=== PATIENT | female | born 1990 | race Caucasian/White ===

== ENCOUNTER → 2016-03-27 | Outpatient (CLI) | payer OTHER ==
[~2016-03-27] MED LIST: ACET-1256 PO; CHOL200010 PO; CYAN500T13 PO; FAMO20TA9 PO; LEVO200T6 PO; NAPR1TAB9 PO; ONDA4TAB10 SL; PEDI1CHW82 PO; ZFRODT4HP SL
--- NOTE | 2016-03-27 16:46 | DIAGNOSTIC IMAGING REPORT ---
CHEST 2 VIEWS ROUTINE HISTORY: Z01.811 PREOP PULMONARY/RESPIRATORY EXAM COMPARISON: Chest 03/27/2015. FINDINGS: Stable punctate calcified granuloma within the left lung apex. The lungs are otherwise clear. The heart is normal in size. No pleural effusions. No pneumothorax. IMPRESSION: No acute process. Electronically signed by: Chau Easton M.D. 03/27/2016 4:44 PM Dictated Date/Time: 03/27/2016 4:43 PM
== END | disposition home or self-care (01) ==
LOC: C.RAD 15:54
PROVIDERS: ATTEND Nurse Practitioner Family
DX: Z01.811 Encounter for preprocedural respiratory examination (principal)

== ENCOUNTER → 2016-03-27 | Outpatient (CLI) | payer OTHER ==
[~2016-03-27] VITALS: Ht 162.6 cm; Wt 160.8 kg
[2016-03-27 15:13] VITALS: BP 132/83; PULSE 111; Ht 162.6 cm; Wt 160.8 kg
== END | disposition home or self-care (01) ==
LOC: C.NEUR 14:50
PROVIDERS: ATTEND Internal Medicine Pulmonary Disease
DX: R53.83 Other fatigue (principal)

== ENCOUNTER → 2016-06-11 | Outpatient (CLI) | payer OTHER ==
[2016-06-11 13:43] LABS: PARTIAL THROMBOPLASTIN RATIO 1.1
[2016-06-15 15:36] LABS: RISTOCETIN COFACTOR** 4459X 118 % (42-200)
[2016-06-20 14:19] LABS: FACTOR VIII ACTIV**SEND TO GMC 217 % (55 - 145)
== END | disposition home or self-care (01) ==
LOC: C.LAB 12:49
PROVIDERS: ATTEND Surgery
DX: Z83.2 Family history of diseases of the blood and blood-forming organs and certain disorders involving the immune mechanism (principal)

== ENCOUNTER → 2016-08-19 | Outpatient (CLI) | payer OTHER ==
[2016-08-19 13:42] LABS: THYROID STIMULATING HORMONE 0.298 uIu/ml (0.300-4.500)
== END | disposition home or self-care (01) ==
LOC: C.LAB 11:25
PROVIDERS: ATTEND Internal Medicine
DX: E03.9 Hypothyroidism, unspecified (principal)

== ENCOUNTER → 2016-11-06 | Outpatient (CLI) | payer OTHER ==
[2016-11-06 09:51] LABS: ALT/SGPT 27 U/L (12-78); AST/SGOT 10 U/L (15-37); BLOOD UREA NITROGEN 18 mg/dl (7-18); BUN/CREATININE RATIO 25.4 (10-20); CARBON DIOXIDE 27 mmol/L (21-32); CHLORIDE 107 mmol/L (98-107); GLUCOSE 87 mg/dl (70-99); HDL CHOLESTEROL 42 mg/dl; POTASSIUM 3.8 mmol/L (3.5-5.1); SODIUM 139 mmol/L (136-145)
[2016-11-06 09:56] LABS: ALB/GLOB RATIO 0.9 (0.9-2); ALKALINE PHOSPHATASE 87 U/L (45-117); CHOLESTEROL 155 mg/dl (0-200); CHOLESTEROL/HDL RATIO 3.7; LDL CHOLESTEROL CALCULATED 81 mg/dl; TRIGLYCERIDES 162 mg/dl (0-150); VERY LOW DENSITY LIPOPROT CALC 32 mg/dl
== END | disposition home or self-care (01) ==
LOC: C.LAB 06:50
PROVIDERS: ATTEND Family Medicine
DX: Z00.00 Encounter for general adult medical examination without abnormal findings (principal); Z98.84 Bariatric surgery status

== ENCOUNTER 2016-12-10 19:45 | Emergency (ER) | payer OTHER ==
[~2016-12-10] VITALS: Ht 162.6 cm; Wt 134.2 kg
[~2016-12-10 19:45] MED LIST changes: -ACET-1256 PO; -CHOL200010 PO; -CYAN500T13 PO; -FAMO20TA9 PO; -LEVO200T6 PO; -ONDA4TAB10 SL; -PEDI1CHW82 PO; -ZFRODT4HP SL
[2016-12-10 19:50] VITALS: TEMP 37; Ht 162.6 cm; Wt 134.2 kg
[2016-12-10] MEDS ORDERED: SODIUM CHLORIDE 0.9% 1000ML 1,000 ML IV STA (20:09)
[2016-12-10] MEDS ORDERED: MoRPHine SULFATE 4 MG/ML 1 ML CARP\\VIAL IV STA (20:09)
[2016-12-10] MEDS ORDERED: ONDANSETRON INJ 2 MG/ML 2 ML VIAL IV STA (20:09)
[2016-12-10 20:36] LABS: BASO % 0.2 %; BASO ABS # 0.02 K/uL (0-0.2); COMPLETE YES; EOS % 0.7 %; HEMATOCRIT 42.7 % (37-47); IG% 0.4 %; LYMPH % 23.7 %; LYMPH ABS # 2.56 K/uL (1.2-3.4); MEAN CELL VOLUME 90.5 fL (80-100); MEAN CORPUSCULAR HEMOGLOBIN 29.7 pg (25-34); MEAN CORPUSCULAR HGB CONC 32.8 g/dl (32-36); MEAN PLATELET VOLUME 9.8 fL (7.4-10.4); MONO % 6.5 %; NEUT % 68.5 %; PLATELET COUNT 365 K/uL (130-400); RED BLOOD COUNT 4.72 M/uL (4.2-5.4); WHITE BLOOD COUNT 10.78 K/uL (4.8-10.8)
[2016-12-10] MEDS ORDERED: PEDI1CHW82 PO (20:44)
[2016-12-10] MEDS ORDERED: CHOL200010 PO (20:44)
[2016-12-10] MEDS ORDERED: ZFRODT4HP SL (20:44)
[2016-12-10] MEDS ORDERED: LEVO200T6 PO (20:44)
[2016-12-10] MEDS ORDERED: ACET-1256 PO (20:44)
[2016-12-10] MEDS ORDERED: CYAN500T13 PO (20:44)
[2016-12-10 20:55] LABS: BUN/CREATININE RATIO 24.5 (10-20); CALCIUM 9.4 mg/dl (8.5-10.1); CREATININE 0.86 mg/dl (0.60-1.20); POTASSIUM 3.9 mmol/L (3.5-5.1)
[2016-12-10 21:00] LABS: PREG INTERNAL NEGATIVE QC NEG CLEAR BACKGROUND; PREG INTERNAL POSITIVE QC POS CONTROL LINE
[2016-12-10 21:41] LABS: URINE APPEARANCE CLEAR (CLEAR); URINE BILIRUBIN NEG (NEG); URINE COLOR DK YELLOW; URINE EPITHELIAL CELL AUTO >30 /lpf (0-5); URINE NITRITE NEG (NEG); URINE PH 6.5 (4.5-7.5); URINE SPECIFIC GRAVITY 1.036 (1.000-1.030); UROBILINOGEN NEG (NEG)
[2016-12-10 21:46] LABS: MANUAL MICROSCOPIC REQUIRED? NO; REVIEW REQ? YES
--- NOTE | 2016-12-10 21:59 | DIAGNOSTIC IMAGING REPORT ---
ABD/PELVIS WITHOUT FOR STONE CT DOSE: 1055.84 mGycm HISTORY: Flank pain left pain eval for stone TECHNIQUE: Multiaxial CT images of the abdomen and pelvis were performed without the use of intravenous and oral contrast according to the standard department stone protocol. A dose lowering technique was utilized adhering to the principles of ALARA. COMPARISON STUDY: 05/11/2008 FINDINGS: Lung bases are clear. Lines of a prior gastroplasty. Fatty infiltration of liver. Mild splenomegaly stable from the prior exam. Kidneys negative for calcification or hydronephrosis. Bowel pattern is nonobstructive. Uterus is anteflexed. No free fluid within the pelvic cul-de-sac. The appendix is normal. Small periumbilical fat-containing hernia. No evidence of bowel containment or obstructive change. IMPRESSION: 1. No evidence for nephrocalcinosis or obstructing urinary tract calculus. 2. Operative changes consistent with a prior gastroplasty. 3. Fatty infiltration of liver. 4. No acute process of the abdomen or pelvis. The above report was generated using voice recognition software. It may contain grammatical, syntax or spelling errors. Electronically signed by: Parminder Ambrosio M.D. 12/10/2016 9:58 PM Dictated Date/Time: 12/10/2016 9:55 PM
[2016-12-10 22:30] VITALS: BP 159/82; PULSE 84; O2SAT 95
--- NOTE | 2016-12-11 00:45 | EMERGENCY ROOM VISIT NOTE ---
History Report prepared by Rehana: Sharda Mayo Under the Supervision of: Dr. Prince Kearney M.D. First contact with patient: 20:02 Chief Complaint: ABDOMINAL PAIN Stated Complaint: POSSIBLE DEHYDRATION AND PAIN History of Present Illness The patient is a 26 year old female who presents to the Emergency Room with complaints of intermittent left sided abdominal pain that began four days ago. She currently rates her discomfort as a 7/10 in severity. The patient states that she has a history of a VSG done in June in [place]. She states that she had the procedure done for weight loss. The patient states that she developed left sided abdominal pain that lasted all day. She describes her pain as a sharp, stabbing pain. The patient states that her pain today has been progressively worsening. She additionally reports left flank tenderness, noting that she is unsure if she is dehydrated. The patient states that she has had kidney stones in the past, but states that her pain today felt worse than a kidney stone. She denies her pain feeling similar to a kidney stone. The patient reports a stabbing pain to her left flank, noting that a tingling, cold, numbness radiated across her abdomen. She reports nausea today which is normal for her, but denies any fever or vomiting. The patient reports a decrease in appetite and fluid intake. She denies any complications due to her surgery. The patient denies any chance of . She denies any change in urination, vaginal bleeding, vaginal discharge, melena or hematochezia. Source of History: patient Onset: four days ago Position: abdomen (left sided) Symptom Intensity: 7/10 Quality: sharp, stabbing Timing: intermittent Associated Symptoms: + nausea, No vomiting, No melena, No hematochezia, No urinary symptoms Note: Associated Symptoms: left flank pain Review of Systems See HPI for pertinent positives & negatives. A total of 10 systems reviewed and were otherwise negative. Past Medical & Surgical Medical Problems: (1) Asthma (2) Kidney stone Surgical Problems: (1) Hx of tonsillectomy Family History Cancer Diabetes mellitus Heart disease Hypertension Kidney disease Kidney stones Social History Smoking Status: Never Smoker Smokeless Tobacco Use: No Alcohol Use: none Marital Status: in relationship Housing Status: lives with significant other Occupation Status: employed Current/Historical Medications Scheduled Cholecalciferol (Vitamin D), 4,000 UNITS PO HS Cyanocobalamin (Vitamin B12 500MCG), 500 MCG PO DAILY Levothyroxine Sodium (Levothyroxine Sodium), 200 MCG PO DAILYBB Pediatric Multiple Vitamin W/ (Flintstones Gummies Compl), 2 TABS PO HS Scheduled PRN Acetaminophen (Tylenol), 1,000 MG PO Q8 PRN for Pain Ondansetron (Ondansetron Odt), 1 TAB SL Q8 PRN for Nausea Allergies Coded Allergies: No Known Allergies (Unverified , 12/10/16) Physical Exam Vital Signs Date Time Temp Pulse Resp B/P (MAP) Pulse Ox O2 Delivery O2 Flow Rate FiO2 12/10/16 22:30 84 17 159/82 95 12/10/16 21:25 93 18 138/74 98 Room Air 12/10/16 19:50 37.0 98 18 98 Room Air Physical Exam Constitutional: Vital signs reviewed. Eyes: Pupils are equal round reactive to light. Conjunctiva are noninjected. ENT: Pharynx is clear without erythema or exudate. Mucous membranes are moist. Neck supple without meningeal signs. Respiratory: Clear to auscultation bilaterally. Breath sounds are equal bilaterally. Cardiovascular: Regular rate and rhythm. No rubs or gallops. GI: Soft, mild left upper quadrant tenderness, no guarding, nondistended. Bowel sounds are present. Musculoskeletal: No peripheral edema. No lower extremity tenderness. Integumentary: No cyanosis. Neurological: The patient is awake and alert. No focal deficits. Psychiatric: Normal affect. Medical Decision & Procedures ER Provider Diagnostic Interpretation: CT results as stated below per my review and radiologist interpretation. ABD/PELVIS WITHOUT FOR STONE CT DOSE: 1055.84 mGycm HISTORY: Flank pain left pain eval for stone TECHNIQUE: Multiaxial CT images of the abdomen and pelvis were performed without the use of intravenous and oral contrast according to the standard department stone protocol. A dose lowering technique was utilized adhering to the principles of ALARA. COMPARISON STUDY: 05/11/2008 FINDINGS: Lung bases are clear. Lines of a prior gastroplasty. Fatty infiltration of liver. Mild splenomegaly stable from the prior exam. Kidneys negative for calcification or hydronephrosis. Bowel pattern is nonobstructive. Uterus is anteflexed. No free fluid within the pelvic cul-de-sac. The appendix is normal. Small periumbilical fat-containing hernia. No evidence of bowel containment or obstructive change. IMPRESSION: 1. No evidence for nephrocalcinosis or obstructing urinary tract calculus. 2. Operative changes consistent with a prior gastroplasty. 3. Fatty infiltration of liver. 4. No acute process of the abdomen or pelvis. The above report was generated using voice recognition software. It may contain grammatical, syntax or spelling errors. Electronically signed by: Parminder Ambrosio M.D. 12/10/2016 9:58 PM Dictated Date/Time: 12/10/2016 9:55 PM Laboratory Results 12/10/16 20:23 Red Blood Count 4.72, Mean Corpuscular Volume 90.5, Mean Corpuscular Hemoglobin 29.7, Mean Corpuscular Hemoglobin Concent 32.8, Mean Platelet Volume 9.8, Neutrophils (%) (Auto) 68.5, Lymphocytes (%) (Auto) 23.7, Monocytes (%) (Auto) 6.5, Eosinophils (%) (Auto) 0.7, Basophils (%) (Auto) 0.2, Neutrophils # (Auto) 7.38, Lymphocytes # (Auto) 2.56, Monocytes # (Auto) 0.70, Eosinophils # (Auto) 0.08, Basophils # (Auto) 0.02 12/10/16 20:23 Test 12/10/16 20:23 12/10/16 21:25 White Blood Count 10.78 K/uL (4.8-10.8) Red Blood Count 4.72 M/uL (4.2-5.4) Hemoglobin 14.0 g/dL (12.0-16.0) Hematocrit 42.7 % (37-47) Mean Corpuscular Volume 90.5 fL (80-100) Mean Corpuscular Hemoglobin 29.7 pg (25-34) Mean Corpuscular Hemoglobin Concent 32.8 g/dl (32-36) Platelet Count 365 K/uL (130-400) Mean Platelet Volume 9.8 fL (7.4-10.4) Neutrophils (%) (Auto) 68.5 % Lymphocytes (%) (Auto) 23.7 % Monocytes (%) (Auto) 6.5 % Eosinophils (%) (Auto) 0.7 % Basophils (%) (Auto) 0.2 % Neutrophils # (Auto) 7.38 K/uL (1.4-6.5) Lymphocytes # (Auto) 2.56 K/uL (1.2-3.4) Monocytes # (Auto) 0.70 K/uL (0.11-0.59) Eosinophils # (Auto) 0.08 K/uL (0-0.5) Basophils # (Auto) 0.02 K/uL (0-0.2) RDW Standard Deviation 45.7 fL (36.4-46.3) RDW Coefficient of Variation 13.8 % (11.5-14.5) Immature Granulocyte % (Auto) 0.4 % Immature Granulocyte # (Auto) 0.04 K/uL (0.00-0.02) Anion Gap 7.0 mmol/L (3-11) Est Creatinine Clear Calc Drug Dose 134.2 ml/min Estimated GFR () 107.3 Estimated GFR (Non- 92.6 BUN/Creatinine Ratio 24.5 (10-20) Calcium Level 9.4 mg/dl (8.5-10.1) Total Bilirubin 0.3 mg/dl (0.2-1) Direct Bilirubin 0.1 mg/dl (0-0.2) Aspartate Amino Transf (AST/SGOT) 14 U/L (15-37) Alanine Aminotransferase (ALT/SGPT) 24 U/L (12-78) Alkaline Phosphatase 96 U/L (45-117) Total Protein 8.0 gm/dl (6.4-8.2) Albumin 3.6 gm/dl (3.4-5.0) Lipase 300 U/L (73-393) Human Chorionic Gonadotropin, Qual NEG (NEG) Urine Color DK YELLOW Urine Appearance CLEAR (CLEAR) Urine pH 6.5 (4.5-7.5) Urine Specific [place] 1.036 (1.000-1.030) Urine Protein TRACE (NEG) Urine Glucose (UA) NEG (NEG) Urine Ketones TRACE (NEG) Urine Occult Blood NEG (NEG) Urine Nitrite NEG (NEG) Urine Bilirubin NEG (NEG) Urine Urobilinogen NEG (NEG) Urine Leukocyte Esterase NEG (NEG) Urine WBC (Auto) 1-5 /hpf (0-5) Urine RBC (Auto) 0-4 /hpf (0-4) Urine Hyaline Casts (Auto) 1-5 /lpf (0-5) Urine Epithelial Cells (Auto) >30 /lpf (0-5) Urine Bacteria (Auto) NEG (NEG) Urine Crystals CALCIUM OXALATE (NONE Urine Test NEG (NEG) Laboratory results as reviewed by me. Medications Administered Medications (Trade) Dose Ordered Sig/Hawa Route Start Time Stop Time Status Last Admin Dose Admin Morphine Sulfate (MoRPHine SULFATE INJ) 4 mg ONE STAT IV 12/10/16 20:09 12/10/16 20:11 DC 12/10/16 20:32 4 MG Ondansetron HCl (Zofran Inj) 4 mg NOW STAT IV 12/10/16 20:09 12/10/16 20:11 DC 12/10/16 20:32 4 MG Sodium Chloride 1,000 ml @ 999 mls/hr Q1H1M STAT IV 12/10/16 20:09 12/10/16 21:09 DC 12/10/16 20:32 999 MLS/HR ED Course 2003: The patient was evaluated in room B11B. A complete history and physical exam was performed. 2008: Ordered Sodium Chloride 1000 ml @ 999 mls/hr IV, Zofran Inj 4 mg IV, Morphine Sulfate 4 mg IV. 2222: I reevaluated the patient and she is doing well. I updated her at this time on her test results. I discussed the treatment plan with her and she verbalized complete understanding and agreement. The patient is ready for discharge. Medical Decision This is a 26-year-old female who presents with abdominal pain. Differential diagnosis includes renal colic, hydronephrosis, partial bowel obstruction, ileus , UTI. I did perform a limited focused review of portions of the patient's old chart on the electronic medical record. The patient had an EGD in 2014 that showed gastritis and a small hiatal hernia. I did evaluate the patient as noted above. IV access was established. I did treat the patient with IV morphine and Zofran. She was also given normal saline IV. I did order and review the patient's urinalysis as described above. I did order and review the patient's blood work as noted in the electronic medical record. Her white blood cell count is not elevated. I did order a CT of the abdomen and pelvis. I did review the images myself as well as the radiology report as described above. There is no evidence of acute process. I did reassess the patient. I did discuss the test results with the patient. She was advised follow closely with her doctor. She was discharged in good condition and given return instructions as outlined below. Medication Reconcilliation Current Medication List: was personally reviewed by me Blood Pressure Screening Patient's blood pressure: Elevated blood pressure Blood pressure disposition: Referred to PCP Impression Primary Impression: Left sided abdominal pain Scribe Attestation The scribe's documentation has been prepared under my direct and personally reviewed by me in its entirety. I confirm that the note above accurately reflects all work, treatment, procedures, and medical decision making performed by me. Departure Information Dispostion Home / Self-Care Referrals No Doctor, Assigned (PCP) Forms HOME CARE DOCUMENTATION FORM, IMPORTANT VISIT INFORMATION Patient Instructions My [facility] Additional Instructions You have been examined and treated today on an emergency basis only. This is not a substitute for, or an effort to provide, complete comprehensive medical care. It is impossible to recognize and treat all injuries or illnesses in a single emergency department visit. It is therefore important that you follow up closely with your physician. Call as soon as possible for an appointment. Return for worsening symptoms or if you develop fever, vomiting, or any other concerning symptoms.
[2016-12-11] MEDS ORDERED: FAMO20TA9 PO (18:41)
[2016-12-11] MEDS ORDERED: ONDA4TAB10 SL (18:41)
== END 2016-12-10 22:30 | disposition home or self-care (01) ==
LOC: C.EDB 19:47
DX: R10.9 Unspecified abdominal pain (principal); J45.909 Unspecified asthma, uncomplicated; Z87.442 Personal history of urinary calculi; Z80.9 Family history of malignant neoplasm, unspecified; Z83.3 Family history of diabetes mellitus; Z84.1 Family history of disorders of kidney and ureter

== ENCOUNTER 2016-12-11 14:58 | Emergency (ER) | payer OTHER ==
[~2016-12-11] VITALS: Ht 162.6 cm; Wt 135.5 kg
[~2016-12-11 14:58] MED LIST changes: +ACET-1256 PO; +CHOL200010 PO; +CYAN500T13 PO; +LEVO200T6 PO; -NAPR1TAB9 PO; +PEDI1CHW82 PO; +ZFRODT4HP SL
[2016-12-11 15:08] VITALS: TEMP 36.8; Ht 162.6 cm; Wt 135.5 kg
--- NOTE | 2016-12-11 15:21 | EMERGENCY ROOM VISIT NOTE ---
History Report prepared by Rehana: Marika Houston Under the Supervision of: Dr. Odilon Fu M.D. First contact with patient: 15:18 Chief Complaint: DEHYDRATION Stated Complaint: IV HYDRATION PER PCP History of Present Illness The patient is a 26 year old female who presents to the Emergency Room with complaints of dehydration beginning last night. She states that she called her primary care doctor today and he told her to come back because she needs fluids. The patient also states that she has been fatigued and disoriented, and has had a headache, but denies a history of migraines. She states that she has only been able to drink tiny sips of water, and that she has only had about 24 ounces of water in the last week. The patient was seen in the ED last night for abdominal pain, nausea, and vomiting, but states that her nausea and vomiting have gone away. She reports that her pain has decreased since last night, but that she is not completely better. 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 Source of History: patient Onset: last night Position: other (global) Quality: other (dehydration) Associated Symptoms: + headache, + fatigue, + weakness (disoriented), No nausea, No vomiting Review of Systems See HPI for pertinent positives and negatives. A total of ten systems were reviewed and were otherwise negative. Past Medical & Surgical Medical Problems: (1) Asthma (2) Kidney stone Surgical Problems: (1) Hx of tonsillectomy Family History Cancer Diabetes mellitus Heart disease Hypertension Kidney disease Kidney stones Social History Smoking Status: Current Every Day Smoker Alcohol Use: none Marital Status: in relationship Housing Status: lives with significant other Occupation Status: employed Current/Historical Medications Scheduled Cholecalciferol (Vitamin D), 4,000 UNITS PO HS Cyanocobalamin (Vitamin B12 500MCG), 500 MCG PO DAILY Famotidine (Pepcid), 20 MG PO BID Levothyroxine Sodium (Levothyroxine Sodium), 200 MCG PO DAILYBB Ondasetron Odt (Zofran Odt), 4 MG SL Q6H Pediatric Multiple Vitamin W/ (Flintstones Gummies Compl), 2 TABS PO HS Scheduled PRN Acetaminophen (Tylenol), 1,000 MG PO Q8 PRN for Pain Ondansetron (Ondansetron Odt), 1 TAB SL Q8 PRN for Nausea Allergies Coded Allergies: No Known Allergies (Unverified , 12/11/16) Physical Exam Vital Signs Date Time Temp Pulse Resp B/P (MAP) Pulse Ox O2 Delivery O2 Flow Rate FiO2 12/11/16 19:22 74 18 121/74 98 12/11/16 17:52 74 18 116/77 97 Room Air 12/11/16 16:18 71 16 105/73 100 Room Air 12/11/16 15:08 36.8 91 20 142/93 96 Room Air Physical Exam GENERAL: Awake, alert, well-appearing, in no distress HENT: Normocephalic, atraumatic. Oropharynx unremarkable. Dry mucous membranes. EYES: Normal conjunctiva. Sclera non-icteric. NECK: Supple. No nuchal rigidity. FROM. No JVD. RESPIRATORY: Clear to auscultation. CARDIAC: Regular rate, normal rhythm. Extremities warm and well perfused. Pulses equal. ABDOMEN: Obese, soft, non-distended. No tenderness to palpation. No rebound or guarding. No masses. RECTAL: Deferred. MUSCULOSKELETAL: Chest examination reveals no tenderness. The back is symmetrical on inspection without obvious abnormality. There is no CVA tenderness to palpation. No joint edema. LOWER EXTREMITIES: Calves are equal size bilaterally and non-tender. No edema. No discoloration. NEURO: Normal sensorium. No sensory or motor deficits noted. SKIN: No rash or jaundice noted. Medical Decision & Procedures Laboratory Results 12/11/16 16:00 Red Blood Count 4.42, Mean Corpuscular Volume 91.0, Mean Corpuscular Hemoglobin 28.5, Mean Corpuscular Hemoglobin Concent 31.3, Mean Platelet Volume 9.8, Neutrophils (%) (Auto) 65.9, Lymphocytes (%) (Auto) 25.8, Monocytes (%) (Auto) 6.6, Eosinophils (%) (Auto) 1.1, Basophils (%) (Auto) 0.3, Neutrophils # (Auto) 6.32, Lymphocytes # (Auto) 2.47, Monocytes # (Auto) 0.63, Eosinophils # (Auto) 0.11, Basophils # (Auto) 0.03 12/11/16 16:00 Test 12/11/16 16:00 White Blood Count 9.59 K/uL (4.8-10.8) Red Blood Count 4.42 M/uL (4.2-5.4) Hemoglobin 12.6 g/dL (12.0-16.0) Hematocrit 40.2 % (37-47) Mean Corpuscular Volume 91.0 fL (80-100) Mean Corpuscular Hemoglobin 28.5 pg (25-34) Mean Corpuscular Hemoglobin Concent 31.3 g/dl (32-36) Platelet Count 322 K/uL (130-400) Mean Platelet Volume 9.8 fL (7.4-10.4) Neutrophils (%) (Auto) 65.9 % Lymphocytes (%) (Auto) 25.8 % Monocytes (%) (Auto) 6.6 % Eosinophils (%) (Auto) 1.1 % Basophils (%) (Auto) 0.3 % Neutrophils # (Auto) 6.32 K/uL (1.4-6.5) Lymphocytes # (Auto) 2.47 K/uL (1.2-3.4) Monocytes # (Auto) 0.63 K/uL (0.11-0.59) Eosinophils # (Auto) 0.11 K/uL (0-0.5) Basophils # (Auto) 0.03 K/uL (0-0.2) RDW Standard Deviation 45.4 fL (36.4-46.3) RDW Coefficient of Variation 13.7 % (11.5-14.5) Immature Granulocyte % (Auto) 0.3 % Immature Granulocyte # (Auto) 0.03 K/uL (0.00-0.02) Anion Gap 8.0 mmol/L (3-11) Est Creatinine Clear Calc Drug Dose 178.6 ml/min Estimated GFR () 141.0 Estimated GFR (Non- 121.7 BUN/Creatinine Ratio 25.4 (10-20) Calcium Level 9.0 mg/dl (8.5-10.1) Phosphorus Level 2.8 mg/dl (2.5-4.9) Magnesium Level 2.0 mg/dl (1.8-2.4) Total Bilirubin 0.3 mg/dl (0.2-1) Direct Bilirubin 0.1 mg/dl (0-0.2) Aspartate Amino Transf (AST/SGOT) 14 U/L (15-37) Alanine Aminotransferase (ALT/SGPT) 21 U/L (12-78) Alkaline Phosphatase 82 U/L (45-117) Total Protein 7.1 gm/dl (6.4-8.2) Albumin 3.4 gm/dl (3.4-5.0) Lipase 269 U/L (73-393) Laboratory results reviewed by me Medications Administered Medications (Trade) Dose Ordered Sig/Hawa Route Start Time Stop Time Status Last Admin Dose Admin Sodium Chloride 1,000 ml @ 999 mls/hr Q1H1M STAT IV 12/11/16 15:32 12/11/16 16:32 DC 12/11/16 16:10 999 MLS/HR Sodium Chloride 1,000 ml @ 999 mls/hr Q1H1M STAT IV 12/11/16 15:32 12/11/16 16:32 DC 12/11/16 16:38 999 MLS/HR Famotidine (Pepcid 20mg/100 ml) 20 mg ONE STAT IV 12/11/16 15:32 12/11/16 15:35 DC 12/11/16 16:10 20 MG Metoclopramide HCl (Reglan Inj) 10 mg NOW STAT IM 12/11/16 15:32 12/11/16 15:35 DC 12/11/16 16:10 10 MG Diphenhydramine HCl (Benadryl Inj) 25 mg NOW STAT IV 12/11/16 15:32 12/11/16 15:35 DC 12/11/16 16:10 25 MG ED Course 1523: The patient was evaluated in room A12A. A complete history and physical exam was performed. 1532: Ordered Benadryl Inj 25 mg IV, Reglan Inj 10 mg IM, Famotidine 20 mg IV, Sodium Chloride 1,000 ml @ 999 mls/hr IV, Sodium Chloride 1,000 ml @ 999 mls/hr IV. 1740: The patient's IV was kicked so she has not received a lot of fluid, but still states that she is feeling better. 1900: I reevaluated the patient. Discussed results and discharge instructions: She verbalized understanding and agreement. The patient is ready for discharge. Medical Decision I reviewed the patient's past medical history, medications, and the nursing notes as described above. Differentials include dehydration, electrolyte imbalance, gastritis, gastroenteritis, and UTI. The patient is a 26-year-old woman with a past medical history of recent gastrectomy seen in ED for dehydration yesterday with unremarkable CT per history of present illness. Arrives in no acute distress, afebrile and stable vital signs. She has dry mucous membranes. Otherwise patient's abdomen is soft nontender. Abdomen unremarkable CT yesterday in the unremarkable labs and patient relatively well-appearing today no indication for further imaging. However given the patient's symptoms of lightheadedness labs repeated to evaluate for interval change but were otherwise stable. Patient feeling much improved after IV fluid hydration. Findings and plan for follow-up d/w patient. Patient agreeable and d/c'd per discharge instructions. Medication Reconcilliation Current Medication List: was personally reviewed by me Blood Pressure Screening Patient's blood pressure: Normal blood pressure Impression Primary Impression: Dehydration Additional Impression: Gastritis Scribe Attestation The scribe's documentation has been prepared under my direction and personally reviewed by me in its entirety. I confirm that the note above accurately reflects all work, treatment, procedures, and medical decision making performed by me. Departure Information Dispostion Home / Self-Care Prescriptions Ondasetron Odt (ZOFRAN ODT) 4 Mg Tab 4 MG SL Q6H for Nausea, #10 TAB Prov: Odilon Fu M.D. 12/11/16 Famotidine (PEPCID) 20 Mg Tab 20 MG PO BID for 14 Days, #28 TABS Prov: Odilon Fu M.D. 12/11/16 Referrals Clive Mittal M.D. (PCP) Forms HOME CARE DOCUMENTATION FORM, IMPORTANT VISIT INFORMATION, WORK / SCHOOL INSTRUCTIONS Patient Instructions ED Dehydration, My [facility] Additional Instructions Please follow up with your primary care physician in the next 1-3 days for re- evaluation. You likely are mildly dehydration due to likely gastritis. Otherwise, your exam and lab results did not show signs of an emergent condition at this time. Pepcid for acid reduction Zofran for nausea as needed. Drink plenty of fluids to ensure hydration. Return to the emergency department for worsening symptoms as described in the accompanying instructions. Problem Qualifiers
[2016-12-11] MEDS ORDERED: FAMOTIDINE 20MG/102 ML D5W IV STA (15:32)
[2016-12-11] MEDS ORDERED: METOCLOPRAMIDE HCL INJ 5 MG/ML 2 ML VIAL IM STA (15:32)
[2016-12-11] MEDS ORDERED: SODIUM CHLORIDE 0.9% 1000ML 1,000 ML IV STA ×2 (15:32)
[2016-12-11] MEDS ORDERED: DiphenhydrAMINE HCL 50 MG/ML VIAL IV STA (15:32)
[2016-12-11 16:17] LABS: BASO % 0.3 %; BASO ABS # 0.03 K/uL (0-0.2); COMPLETE YES; EOS % 1.1 %; HEMATOCRIT 40.2 % (37-47); IG% 0.3 %; LYMPH % 25.8 %; LYMPH ABS # 2.47 K/uL (1.2-3.4); MEAN CORPUSCULAR HEMOGLOBIN 28.5 pg (25-34); MEAN CORPUSCULAR HGB CONC 31.3 g/dl (32-36); MEAN PLATELET VOLUME 9.8 fL (7.4-10.4); MONO % 6.6 %; NEUT % 65.9 %; PLATELET COUNT 322 K/uL (130-400); RED BLOOD COUNT 4.42 M/uL (4.2-5.4); WHITE BLOOD COUNT 9.59 K/uL (4.8-10.8)
[2016-12-11 16:33] LABS: BUN/CREATININE RATIO 25.4 (10-20); CREATININE 0.65 mg/dl (0.60-1.20); POTASSIUM 4.1 mmol/L (3.5-5.1)
[2016-12-11 16:38] LABS: PHOSPHORUS 2.8 mg/dl (2.5-4.9)
[2016-12-11] MEDS ORDERED: ONDA4TAB10 SL (18:41)
[2016-12-11] MEDS ORDERED: FAMO20TA9 PO (18:41)
[2016-12-11 19:22] VITALS: BP 121/74; PULSE 74; O2SAT 98
== END 2016-12-11 19:22 | disposition home or self-care (01) ==
LOC: C.EDB 14:59 → C.EDA 19:22
DX: E86.0 Dehydration (principal); K29.70 Gastritis, unspecified, without bleeding; J45.909 Unspecified asthma, uncomplicated; Z83.3 Family history of diabetes mellitus; Z82.49 Family history of ischemic heart disease and other diseases of the circulatory system; F17.200 Nicotine dependence, unspecified, uncomplicated

== ENCOUNTER → 2017-03-10 | Outpatient (CLI) | payer OTHER ==
[~2017-03-10] MED LIST changes: +ONDA4TAB10 SL
== END | disposition home or self-care (01) ==
LOC: C.LAB 16:53
PROVIDERS: ATTEND Nurse Practitioner
DX: N91.2 Amenorrhea, unspecified (principal)

== ENCOUNTER → 2017-03-24 | Outpatient (CLI) | payer OTHER ==
[2017-03-24 09:34] LABS: BASO % 0.2 %; BASO ABS # 0.02 K/uL (0-0.2); EOS % 0.9 %; EOS ABS # 0.08 K/uL (0-0.5); HEMATOCRIT 38.7 % (37-47); HEMOGLOBIN 13.1 g/dL (12.0-16.0); IG# 0.03 K/uL (0.00-0.02); LYMPH % 27.2 %; LYMPH ABS # 2.34 K/uL (1.2-3.4); MEAN CELL VOLUME 89.2 fL (80-100); MEAN CORPUSCULAR HEMOGLOBIN 30.2 pg (25-34); MEAN CORPUSCULAR HGB CONC 33.9 g/dl (32-36); MEAN PLATELET VOLUME 9.6 fL (7.4-10.4); MONO % 6.7 %; MONO ABS # 0.58 K/uL (0.11-0.59); NEUT % 64.7 %; NEUT ABS # 5.55 K/uL (1.4-6.5); PLATELET COUNT 326 K/uL (130-400); RED CELL DISTRIBUTION WIDTH CV 13.5 % (11.5-14.5); RED CELL DISTRIBUTION WIDTH SD 44.3 fL (36.4-46.3)
== END | disposition home or self-care (01) ==
LOC: C.LAB 07:00
PROVIDERS: ATTEND Obstetrics & Gynecology
DX: O26.90 Pregnancy related conditions, unspecified, unspecified trimester (principal)

== ENCOUNTER → 2017-03-31 | Outpatient (CLI) | payer OTHER | END | disposition home or self-care (01) | LOC: C.LAB 07:00 | PROVIDERS: ATTEND Obstetrics & Gynecology | DX: Z34.90 Encounter for supervision of normal pregnancy, unspecified, unspecified trimester (principal) ==

== ENCOUNTER → 2017-04-27 | Outpatient (CLI) | payer OTHER | END | disposition home or self-care (01) | LOC: C.LAB1850 12:05 | PROVIDERS: ATTEND Obstetrics & Gynecology | DX: Z34.90 Encounter for supervision of normal pregnancy, unspecified, unspecified trimester (principal) ==

== ENCOUNTER → 2017-07-02 | Outpatient (CLI) | payer OTHER ==
[~2017-07-02] MED LIST changes: -ONDA4TAB10 SL
== END | disposition home or self-care (01) ==
LOC: C.LAB 05:35
PROVIDERS: ATTEND Obstetrics & Gynecology
DX: Z34.90 Encounter for supervision of normal pregnancy, unspecified, unspecified trimester (principal)

== ENCOUNTER 2022-11-05 21:49 | Inpatient (IN) ==
[2022-11-05] MEDS ORDERED: KETOROLAC TROMETHAMINE 15 MG/ML VIAL IV ONE (22:28)
[2022-11-05] MEDS ORDERED: PROMETHAZINE HCL 12.5 MG in SODIUM CHLORIDE 0.9% 50 ML IV STA (22:28)
[2022-11-05] MEDS ORDERED: diphenhydrAMINE 50 MG/ML VIAL IV STA (22:28)
[2022-11-05] MEDS ORDERED: SODIUM CHLORIDE 0.9% 1000ML 1,000 ML IV STA (22:28)
--- NOTE | 2022-11-05 22:32 | Emergency Department Note ---
Impression & Plan Acute headache, Cerebral vascular disease, Hypertension ED Provider Note NAME: MAURICIO COLE AGE: 32 SEX: F : 1990 ARRIVES VIA: Walk-In INFORMANT: Patient, ED PROVIDER(S): Dharmesh Jaimes DO CHIEF COMPLAINT: Headache HPI: The patient is a 32-year-old female who presented to the emergency department for an evaluation of headache. The patient describes an occipital headache that goes into the front of her head. She was seen by an eye doctor today and had a funduscopic examination which was reportedly normal. She states that she has had intermittent episodes of this headache. Is become progressively worse. She is scheduled for outpatient studies including an MRI of the brain as well as lumbar puncture. She has had a history of headaches in the past but states this is somewhat different. She denies having any fever or neck stiffness. She denies having any recent trauma. She has been taking her usual outpatient medication without relief of her symptoms. ROS: See above HPI for pertinent positives & negatives. A total of 10 systems reviewed and were otherwise negative. PAST MEDICAL HISTORY: See Below PAST SURGICAL HISTORY: See Below FAMILY HISTORY: See Below SOCIAL HISTORY: See Below HOME MEDICATIONS: See Below ALLERGIES: See Below VITALS: See Below PHYSICAL EXAMINATION: GENERAL: The patient is awake and alert. She is somewhat anxious appearing. EYES: The conjunctivae are clear. The pupils are round and reactive. EARS, NOSE, MOUTH AND THROAT: The nose is without any evidence of any deformity. NECK: The neck is nontender and supple. RESPIRATORY: Normal respiratory effort is noted there is no evidence of wheezing rhonchi or rales CARDIOVASCULAR: Regular rate and rhythm noted there no murmurs rubs or gallops normal S1 normal S2. GASTROINTESTINAL: The abdomen is soft. Abdomen is nontender. MUSCULOSKELETAL/EXTREMITIES: There is no evidence of gross deformity full range of motion is noted in the hips and shoulders. SKIN: There is no obvious evidence of any rash. There are no petechiae, pallor or cyanosis noted. NEUROLOGIC: Patient is awake alert and oriented x3 strength is symmetric patellar reflexes are 2+ bilaterally MEDICAL DECISION MAKING: The patient is a 32-year-old female who presented to the emergency department for an evaluation of left-sided headache. The patient complained mostly of pain behind her left eye. She did have pain that went into her head and into her left side of her neck. The patient's family member presented with her and also reported other issues she noticed at 1 point she did have some slurring speech and was having difficulty ambulating. At this time she has no focal neurologic deficits. She has no history of similar episodes in the past. She was found have an elevation in her blood pressure. I discussed the patient's laboratory and radiographic studies with her. She was treated with a migraine cocktail in the emergency department. On reevaluation she was somewhat improved however CT angiography of the brain did show an area on the left M2 segment that could be consistent with an occlusion. I discussed her condition with the [place] telestroke neurologist. They were able to review the images. At this time it is unclear if this represents artifact or true occlusion. Given the patient's presentation at this time and the fact that her symptoms have been ongoing for many weeks she was not felt to be a candidate for transfer at this time. The neurologist did recommend repeat studies in the way of MRI MRA of the brain. He also recommended aspirin. He also recommended blood pressure control as well as consideration for other causes for her presentation such as reversible vasospasm. He did recommend that we avoid steroids. The patient was agreeable to the plan. [facility] Nursing notes reviewed. Prior medical records reviewed Vital Signs: reviewed and remarkable for elevated blood pressure. Differential diagnosis: Migraine headache, meningitis, sinusitis, CO exposure, ICH, SAH, infection, tumor, headache, sinus thrombosis, arterial dissection, as well as other pathologies. ER treatment provided: See below Diagnostics interpreted by me: ECG: EKG was obtained in the emergency department. My interpretation is sinus rhythm at 73 bpm. There is no ectopy. There is no acute ST segment abnormalities noted. This was compared to a tracing from January 31, 2022. No changes were noted. There was a decrease in the rate however no other significant changes were noted. Cardiac Monitoring: An order was placed for continuous cardiac monitoring. The monitor shows a rate of 90 bpm with sinus rhythm. Laboratory studies: As stated above and show below. Imaging studies: See below. Radiographic imaging was reviewed by myself Consultation(s): I discussed this case with Dr. Jiang who is on for stroke neurology at [facility]. I discussed this case with Dr. Schmitt who is on-call for the [facility] [place] hospitalist group. Past Med/Surg History Medical History Asthma History of gestational hypertension History of hypothyroidism Migraine Morbid obesity Surgical History History of perineal laceration S/P REPAIR Hx of abdominal surgery SLEEVE GASTRECTOMY= NO FURTHER DETAILS Hx of tonsillectomy Family History Other Heart disease Myocardial infarction Social History Smoking Status: Never smoker Hx Alcohol Use: No Hx Substance Use: No Preferred Language: Malay Communication Ability: Effective Beliefs That Will Affect Care: None Current Living Situation: Family Feels Safe at Home: Yes Allergies Allergies Allergy/AdvReac Type Severity Reaction Status Date / Time hydromorphone [From Dilaudid] AdvReac Unknown Headache Verified 07/29/20 16:49 Home Meds Home Medications Medication Instructions Recorded Confirmed [id number] 1 mg 1 tab PO DAILY 07/29/20 07/29/20 tablet rizatriptan 10 mg tablet 10 mg PO UD PRN Migraine Headache 07/29/20 07/29/20 Results & Data (ED) Vital Signs Vital Signs - 24 hr 11/05/22 21:59 11/05/22 22:51 11/05/22 22:52 Temperature 36.9 C Temperature Source Temporal Artery Scan Pulse Rate 72 Pulse Rate [Apical] 73 Pulse Rhythm [Apical] Respiratory Rate 16 16 Respiratory Effort / Characteristics Respiratory Depth Blood Pressure 154/114 H Blood Pressure [Left Arm] 158/107 H Blood Pressure Mean 127 Blood Pressure Mean [Left Arm] 124 Pulse Oximetry 98 99 100 Oxygen Delivery Method Room Air Room Air Room Air Sepsis Recent Fever Within 48 Hours No Sepsis New/Unexplained Change in Mental Status N/A Sepsis Action Taken by Nursing No Action Required 11/05/22 22:52 11/06/22 00:00 11/06/22 01:00 Temperature Temperature Source Pulse Rate 72 Pulse Rate [Apical] 75 66 Pulse Rhythm [Apical] Regular Regular Respiratory Rate 15 15 Respiratory Effort / Characteristics Non-Labored Non-Labored Respiratory Depth Normal Normal Blood Pressure Blood Pressure [Left Arm] 138/105 H Blood Pressure Mean Blood Pressure Mean [Left Arm] 116 Pulse Oximetry 98 99 Oxygen Delivery Method Room Air Room Air Sepsis Recent Fever Within 48 Hours Sepsis New/Unexplained Change in Mental Status Sepsis Action Taken by Nursing 11/06/22 02:57 11/06/22 03:00 Temperature Temperature Source Pulse Rate 73 Pulse Rate [Apical] 90 Pulse Rhythm [Apical] Respiratory Rate 14 Respiratory Effort / Characteristics Respiratory Depth Blood Pressure Blood Pressure [Left Arm] 165/117 H Blood Pressure Mean Blood Pressure Mean [Left Arm] 133 Pulse Oximetry 99 Oxygen Delivery Method Sepsis Recent Fever Within 48 Hours Sepsis New/Unexplained Change in Mental Status Sepsis Action Taken by [facility] Medications Current Medication List: was personally reviewed by me Laboratory Data Attestation: I reviewed the patient's lab results. 11/05/22 22:42 11/05/22 22:42 Lab Results 11/05/22 11/05/22 11/05/22 Range/Units 22:24 22:42 22:42 WBC 7.37 (4.8-10.8) K/ul RBC 4.51 (4.20-5.40) M/uL Hgb 12.0 (12.0-16.0) g/dl Hct 37.9 (37.0-47.0) % MCV 84.0 (80.0-100.0) fL MCH 26.6 (25.0-34.0) pg MCHC 31.7 L (32.0-36.0) g/dL RDW Std Deviation 46.7 H (36.4-46.3) fL RDW Coeff of Trina 15.2 H (11.5-14.5) % Plt Count 324 (130-400) K/uL MPV 10.2 (9.4-12.4) fL Immature Gran % (Auto) 0.1 % Neut % (Auto) 55.1 % Lymph % (Auto) 34.5 % Crisp % (Auto) 7.2 % Eos % (Auto) 2.2 % Baso % (Auto) 0.9 % Neut # (Auto) 4.06 (1.40-6.50) K/uL Lymph # (Auto) 2.54 (1.20-3.40) K/uL Crisp # (Auto) 0.53 (0.11-0.59) K/uL Eos # (Auto) 0.16 (0.00-0.50) K/uL Baso # (Auto) 0.07 (0.00-0.20) K/uL Immature Gran # (Auto) 0.01 (0.01-0.20) K/uL ESR (0-20) mm/hr PT 10.5 (9.0-12.0) Seconds INR 1.0 (0.9-1.1) APTT 26.3 (21.0-31.0) Seconds PTT Ratio 0.9 Sodium 140 (136-145) mmol/L Potassium 3.6 (3.5-5.1) mmol/L Chloride 107 (98-107) mmol/L Carbon Dioxide 26 (21-32) mmol/L Anion Gap 7 (3-11) BUN 20 (6-23) mg/dl Creatinine 0.86 (0.6-1.2) mg/dl Est Cr Clr Drug Dosing 138.1 ml/min Est GFR ( Amer) 102.9 ml/min Est GFR (Non-Af Amer) 88.8 ml/min BUN/Creatinine Ratio 23.3 H (10-20) Glucose 94 (70-99(Fasting)) mg/dl Calcium 9.2 (8.6-10.3) mg/dl Total Bilirubin 0.4 (0.2-1.0) mg/dl AST 12 L (13-39) U/L ALT 13 (7-52) U/L Alkaline Phosphatase 79 (34-104) U/L Troponin I High Sens 3.8 (0-14) pg/ml C-Reactive Protein 1.19 H (0-0.5) mg/dl Total Protein 7.8 (6.0-8.3) gm/dl Albumin 4.4 (3.4-5.0) gm/dl Globulin 3.4 (2.5-4.0) gm/dl Albumin/Globulin Ratio 1.3 (0.9-2) Lipase 52 (11-82) U/L HCG, Qual (Negative) 11/05/22 11/05/22 Range/Units 22:42 22:42 WBC (4.8-10.8) K/ul RBC (4.20-5.40) M/uL Hgb (12.0-16.0) g/dl Hct (37.0-47.0) % MCV (80.0-100.0) fL MCH (25.0-34.0) pg MCHC (32.0-36.0) g/dL RDW Std Deviation (36.4-46.3) fL RDW Coeff of Trina (11.5-14.5) % Plt Count (130-400) K/uL MPV (9.4-12.4) fL Immature Gran % (Auto) % Neut % (Auto) % Lymph % (Auto) % Crisp % (Auto) % Eos % (Auto) % Baso % (Auto) % Neut # (Auto) (1.40-6.50) K/uL Lymph # (Auto) (1.20-3.40) K/uL Crisp # (Auto) (0.11-0.59) K/uL Eos # (Auto) (0.00-0.50) K/uL Baso # (Auto) (0.00-0.20) K/uL Immature Gran # (Auto) (0.01-0.20) K/uL ESR 26 H (0-20) mm/hr PT (9.0-12.0) Seconds INR (0.9-1.1) APTT (21.0-31.0) Seconds PTT Ratio Sodium (136-145) mmol/L Potassium (3.5-5.1) mmol/L Chloride (98-107) mmol/L Carbon Dioxide (21-32) mmol/L Anion Gap (3-11) BUN (6-23) mg/dl Creatinine (0.6-1.2) mg/dl Est Cr Clr Drug Dosing ml/min Est GFR ( Amer) ml/min Est GFR (Non-Af Amer) ml/min BUN/Creatinine Ratio (10-20) Glucose (70-99(Fasting)) mg/dl Calcium (8.6-10.3) mg/dl Total Bilirubin (0.2-1.0) mg/dl AST (13-39) U/L ALT (7-52) U/L Alkaline Phosphatase (34-104) U/L Troponin I High Sens (0-14) pg/ml C-Reactive Protein (0-0.5) mg/dl Total Protein (6.0-8.3) gm/dl Albumin (3.4-5.0) gm/dl Globulin (2.5-4.0) gm/dl Albumin/Globulin Ratio (0.9-2) Lipase (11-82) U/L HCG, Qual Negative (Negative) Administered Medications Discontinued Medications Aspirin (Aspirin Chew 324 Mg) 324 mg PO NOW STA Stop: 11/06/22 03:07 Last Admin: 11/06/22 03:17 Dose: 324 mg Documented By: MORRO Diphenhydramine HCl (Diphenhydramine 50 Mg/Ml Vial) 25 mg IV NOW STA Stop: 11/05/22 22:29 Last Admin: 11/05/22 22:44 Dose: 25 mg Documented By: AN Sodium Chloride (Nss 1000ml) 1,000 mls @ 999 mls/hr IV .Q1H1M STA Stop: 11/05/22 23:28 Last Infusion: 11/05/22 23:59 Dose: 0 mls/hr Documented By: Admin: 11/05/22 22:44 Dose: 999 mls/hr Documented By: DANIELITO Promethazine HCl 12.5 mg/ (Sodium Chloride) 50.5 mls @ 202 mls/hr IV NOW STA Stop: 11/05/22 22:42 Last Infusion: 11/05/22 23:58 Dose: 0 mls/hr Documented By: Admin: 11/05/22 23:35 Dose: 202 mls/hr Documented By: MORRO Ioversol (Ioversol 350 Mg 125ml Prefilled Syringe) 119 ml IV ONCE ONE Stop: 11/06/22 00:31 Last Admin: 11/06/22 00:31 Dose: 119 ml Documented By: CHAPIN Ketorolac Tromethamine (Ketorolac Tromethamine 15 Mg/Ml Vial) 10 mg IV NOW ONE Stop: 11/05/22 22:29 Last Admin: 11/05/22 22:44 Dose: 10 mg Documented By: DANIELITO Promethazine HCl (Promethazine 12.5 Mg/50.5 Ml Nss) Confirm Administered Dose 12.5 mg IV .STK-MED ONE Stop: 11/05/22 23:33 Last Admin: 11/05/22 23:34 Dose: 12.5 mg Documented By: MORRO Imaging Data Attestation: I personally reviewed and interpreted this imaging study as follows: My Impression: CT of the brain was obtained in the emergency department. My interpretation is no intracranial hemorrhage or mass effect, final report below. Radiologist's Impression: Head CT 11/05/22 22:28 Exam(s): CT HEAD Without Contrast EXAM: CT Head Without Intravenous Contrast CLINICAL HISTORY: Reason for exam: RIVAS. TECHNIQUE: Axial computed tomography images of the head/brain without intravenous contrast. CTDI is 14 mGy and DLP is 524.68 mGy-cm. Automated exposure control was utilized for the study. A dose lowering technique was utilized adhering to the principles of ALARA. COMPARISON: Comparison made to prior brain MRI from September 20, 2020. FINDINGS: Brain: Unremarkable. No hemorrhage. No significant white matter disease. No edema. Ventricles: Unremarkable. No ventriculomegaly. Bones/joints: Unremarkable. No acute fracture. Soft tissues: Unremarkable. Sinuses: Unremarkable as visualized. No acute sinusitis. Mastoid air cells: Unremarkable as visualized. No mastoid effusion. IMPRESSION: No evidence of acute intracranial pathology. Electronically signed by: Linda Logan MD 11/06/22 01:51 AM Head CTA 11/05/22 22:28 CR Exam(s): CTA HEAD With Contrast IV Amt: 119 ml opti 350 ADDENDUM - Added by Linda Logan MD on 11/06/2022 1:30 AM (-07:00) EXAM: CT Angiography Head With Intravenous Contrast CLINICAL HISTORY: Reason for exam: RIVAS. TECHNIQUE: Axial computed tomographic angiography images of the head with intravenous contrast. CTDI is 37.12 mGy and DLP is 624.41 mGy-cm. Automated exposure control was utilized for the study. A dose lowering technique was utilized adhering to the principles of ALARA. MIP reconstructed images were created and reviewed. CONTRAST: Patient received 119 ml opti 350 of IV contrast COMPARISON: No relevant prior studies available. FINDINGS: Right internal carotid artery: No acute findings. Intracranial segment is patent with no significant stenosis. No aneurysm. Right anterior cerebral artery: Unremarkable. No occlusion or significant stenosis. No aneurysm. Right middle cerebral artery: Unremarkable. No occlusion or significant stenosis. No aneurysm. Right posterior cerebral artery: Unremarkable. No occlusion or significant stenosis. No aneurysm. Right vertebral artery: Unremarkable as visualized. Left internal carotid artery: No acute findings. Intracranial segment is patent with no significant stenosis. No aneurysm. Left anterior cerebral artery: Unremarkable. No occlusion or significant stenosis. No aneurysm. Left middle cerebral artery: Findings concerning for a high-grade stenosis of proximal left M2 segment with diminished enhancement of the distal vessel there is a second stenosis of the proximal left M2 segment with filling defect. No aneurysm. Left posterior cerebral artery: Unremarkable. No occlusion or significant stenosis. No aneurysm. Left vertebral artery: Unremarkable as visualized. Basilar artery: Unremarkable. No occlusion or significant stenosis. No aneurysm. IMPRESSION: There are high-grade stenosis of 2 left proximal M2 segments concerning for acute thromboembolic disease. Communications: Verify Receipt Electronically signed by: Linda Logan MD 11/06/22 01:30 AM Neck CTA 11/05/22 22:28 Exam(s): CTA NECK With Contrast IV Amt: 119 ml opti 350 EXAM: CT Angiography Neck With Intravenous Contrast CLINICAL HISTORY: Reason for exam: RIVAS. TECHNIQUE: Routine carotid CT angiography protocol was performed with intravenous contrast. NASCET criteria using the distal ICAs for comparison were used for evaluation of stenoses. CTDI is 34.25 mGy and DLP is 522.72 mGy-cm. Automated exposure control was utilized for the study. A dose lowering technique was utilized adhering to the principles of ALARA. MIP reconstructed images were created and reviewed. CONTRAST: Patient received 119 ml opti 350 of IV contrast COMPARISON: None. FINDINGS: VASCULATURE: Right common carotid artery: Unremarkable. No occlusion or significant stenosis. No dissection. Right internal carotid artery: Unremarkable. Extracranial segment is patent with no occlusion or significant stenosis. No dissection. Right external carotid artery: Unremarkable. No occlusion. Right vertebral artery: Unremarkable. No occlusion or significant stenosis. No dissection. Left common carotid artery: Unremarkable. No occlusion or significant stenosis. No dissection. Left internal carotid artery: Unremarkable. Extracranial segment is patent with no occlusion or significant stenosis. No dissection. Left external carotid artery: Unremarkable. No occlusion. Left vertebral artery: Unremarkable. No occlusion or significant stenosis. No dissection. NECK: Bones/joints: Unremarkable. Soft tissues: Left thyroid nodule. Cervical lymphadenopathy. Lung apices: Findings concerning for bronchitis with pneumonitis, which may be infectious or inflammatory etiologies. CAROTID STENOSIS REFERENCE USING NASCET CRITERIA: % ICA stenosis = (1 - narrowest ICA diameter/diameter of distal cervical ICA) x 100. Mild - <50% stenosis. Moderate - 50-69% stenosis. Severe - 70-94% stenosis. Near occlusion - 95-99% stenosis. Occluded - 100% stenosis. IMPRESSION: Negative CT angiogram of the neck. Electronically signed by: Linda Logan MD 11/06/22 01:48 AM Discharge Plan Visit Data Chief Complaint: Head Pain Stated Complaint: HEAD PAIN,BURNING SENSATION,NAUSEA ED Provider: Dharmesh Jaimes Discharge Problem: Acute headache, Cerebral vascular disease, Hypertension Patient Disposition: Being Evaluated by Hospitalist Forms [facility] Prescriptions Prescriptions: No Action rizatriptan 10 mg tablet 10 mg PO UD PRN (Reason: Migraine Headache) 1 mg Tablet 1 tab PO DAILY Referrals Referrals: Saw Mittal [Primary Care Provider] - Acute headache Qualifiers: Headache type: unspecified Intractability: not intractable Qualified Code(s): R51.9 - Headache, unspecified Hypertension Qualifiers: Hypertension type: unspecified Qualified Code(s): I10 - Essential (primary) hypertension
[2022-11-05 23:09] LABS: Basophils # (auto) 0.07 K/uL (0.00-0.20); Basophils % (auto) 0.9 %; Eosinophils # (auto) 0.16 K/uL (0.00-0.50); Eosinophils % (auto) 2.2 %; Hematocrit (blood only) 37.9 % (37.0-47.0); Immature Granulocytes # (auto) 0.01 K/uL (0.01-0.20); Immature Granulocytes % (auto) 0.1 %; Lymphocytes # (auto) 2.54 K/uL (1.20-3.40); Lymphocytes % (auto) 34.5 %; Mean Corpuscular Hemoglobin 26.6 pg (25.0-34.0); Mean Corpuscular Hgb Conc 31.7 g/dL (32.0-36.0); Mean Platelet Volume 10.2 fL (9.4-12.4); Monocytes # (auto) 0.53 K/uL (0.11-0.59); Monocytes % (auto) 7.2 %; Neutrophils # (auto) 4.06 K/uL (1.40-6.50); Neutrophils % (auto) 55.1 %; Platelet Count 324 K/uL (130-400); RDW Coefficient of Variation 15.2 % (11.5-14.5); RDW Standard Deviation 46.7 fL (36.4-46.3); Red Blood Count 4.51 M/uL (4.20-5.40); White Blood Count 7.37 K/ul (4.8-10.8)
[2022-11-05 23:25] LABS: Albumin Globulin Ratio 1.3 (0.9-2); Albumin Level 4.4 gm/dl (3.4-5.0); BUN Creatinine Ratio 23.3 (10-20); Bilirubin,Total 0.4 mg/dl (0.2-1.0); Calcium 9.2 mg/dl (8.6-10.3); Creatinine Clr Calc Pharmacy 138.1 ml/min; Est GFR (African American) 102.9 ml/min; Est GFR (Non-African American) 88.8 ml/min; Globulin 3.4 gm/dl (2.5-4.0); Potassium 3.6 mmol/L (3.5-5.1); Total Protein 7.8 gm/dl (6.0-8.3)
[2022-11-05] MEDS ORDERED: PROMETHAZINE 12.5 MG/50.5 ML NSS IV ONE (23:32)
[2022-11-05 23:40] LABS: Pregnancy Test, Serum Negative (Negative)
[2022-11-06] MEDS ORDERED: IOVERSOL 350 MG 125mL Prefilled Syringe IV ONE (00:30)
--- NOTE | 2022-11-06 01:31 | CT Scan Report ---
Exam(s): CTA HEAD With Contrast IV Amt: 119 ml opti 350 ADDENDUM - Added by Linda Logan MD on 11/06/2022 1:30 AM (-07:00) EXAM: CT Angiography Head With Intravenous Contrast CLINICAL HISTORY: Reason for exam: RIVAS. TECHNIQUE: Axial computed tomographic angiography images of the head with intravenous contrast. CTDI is 37.12 mGy and DLP is 624.41 mGy-cm. Automated exposure control was utilized for the study. A dose lowering technique was utilized adhering to the principles of ALARA. MIP reconstructed images were created and reviewed. CONTRAST: Patient received 119 ml opti 350 of IV contrast COMPARISON: No relevant prior studies available. FINDINGS: Right internal carotid artery: No acute findings. Intracranial segment is patent with no significant stenosis. No aneurysm. Right anterior cerebral artery: Unremarkable. No occlusion or significant stenosis. No aneurysm. Right middle cerebral artery: Unremarkable. No occlusion or significant stenosis. No aneurysm. Right posterior cerebral artery: Unremarkable. No occlusion or significant stenosis. No aneurysm. Right vertebral artery: Unremarkable as visualized. Left internal carotid artery: No acute findings. Intracranial segment is patent with no significant stenosis. No aneurysm. Left anterior cerebral artery: Unremarkable. No occlusion or significant stenosis. No aneurysm. Left middle cerebral artery: Findings concerning for a high-grade stenosis of proximal left M2 segment with diminished enhancement of the distal vessel there is a second stenosis of the proximal left M2 segment with filling defect. No aneurysm. Left posterior cerebral artery: Unremarkable. No occlusion or significant stenosis. No aneurysm. Left vertebral artery: Unremarkable as visualized. Basilar artery: Unremarkable. No occlusion or significant stenosis. No aneurysm. IMPRESSION: There are high-grade stenosis of 2 left proximal M2 segments concerning for acute thromboembolic disease. Communications: Verify Receipt Electronically signed by: Linda Logan MD 11/06/22 01:30 AM
--- NOTE | 2022-11-06 01:48 | CT Scan Report ---
Exam(s): CTA NECK With Contrast IV Amt: 119 ml opti 350 EXAM: CT Angiography Neck With Intravenous Contrast CLINICAL HISTORY: Reason for exam: RIVAS. TECHNIQUE: Routine carotid CT angiography protocol was performed with intravenous contrast. NASCET criteria using the distal ICAs for comparison were used for evaluation of stenoses. CTDI is 34.25 mGy and DLP is 522.72 mGy-cm. Automated exposure control was utilized for the study. A dose lowering technique was utilized adhering to the principles of ALARA. MIP reconstructed images were created and reviewed. CONTRAST: Patient received 119 ml opti 350 of IV contrast COMPARISON: None. FINDINGS: VASCULATURE: Right common carotid artery: Unremarkable. No occlusion or significant stenosis. No dissection. Right internal carotid artery: Unremarkable. Extracranial segment is patent with no occlusion or significant stenosis. No dissection. Right external carotid artery: Unremarkable. No occlusion. Right vertebral artery: Unremarkable. No occlusion or significant stenosis. No dissection. Left common carotid artery: Unremarkable. No occlusion or significant stenosis. No dissection. Left internal carotid artery: Unremarkable. Extracranial segment is patent with no occlusion or significant stenosis. No dissection. Left external carotid artery: Unremarkable. No occlusion. Left vertebral artery: Unremarkable. No occlusion or significant stenosis. No dissection. NECK: Bones/joints: Unremarkable. Soft tissues: Left thyroid nodule. Cervical lymphadenopathy. Lung apices: Findings concerning for bronchitis with pneumonitis, which may be infectious or inflammatory etiologies. CAROTID STENOSIS REFERENCE USING NASCET CRITERIA: % ICA stenosis = (1 - narrowest ICA diameter/diameter of distal cervical ICA) x 100. Mild - <50% stenosis. Moderate - 50-69% stenosis. Severe - 70-94% stenosis. Near occlusion - 95-99% stenosis. Occluded - 100% stenosis. IMPRESSION: Negative CT angiogram of the neck. Electronically signed by: Linda Logan MD 11/06/22 01:48 AM
--- NOTE | 2022-11-06 01:52 | CT Scan Report ---
Exam(s): CT HEAD Without Contrast EXAM: CT Head Without Intravenous Contrast CLINICAL HISTORY: Reason for exam: RIVAS. TECHNIQUE: Axial computed tomography images of the head/brain without intravenous contrast. CTDI is 14 mGy and DLP is 524.68 mGy-cm. Automated exposure control was utilized for the study. A dose lowering technique was utilized adhering to the principles of ALARA. COMPARISON: Comparison made to prior brain MRI from September 20, 2020. FINDINGS: Brain: Unremarkable. No hemorrhage. No significant white matter disease. No edema. Ventricles: Unremarkable. No ventriculomegaly. Bones/joints: Unremarkable. No acute fracture. Soft tissues: Unremarkable. Sinuses: Unremarkable as visualized. No acute sinusitis. Mastoid air cells: Unremarkable as visualized. No mastoid effusion. IMPRESSION: No evidence of acute intracranial pathology. Electronically signed by: Linda Logan MD 11/06/22 01:51 AM
[2022-11-06 02:30] LABS: C Reactive Protein 1.19 mg/dl (0-0.5)
[2022-11-06 02:30] LABS: Partial Thromboplastin Ratio 0.9; Partial Thromboplastin Time 26.3 Seconds (21.0-31.0); Prothrombin Time 10.5 Seconds (9.0-12.0)
[2022-11-06 02:38] LABS: Troponin I High Sensitivity 3.8 pg/ml (0-14)
[2022-11-06] MEDS ORDERED: ASPIRIN CHEW 324 MG PO STA (03:06)
--- NOTE | 2022-11-06 03:26 | History & Physical Report ---
Date of Service November 06, 2022 Assessment & Plan (1) Acute headache: Plan: 32yo female with history of migraine presenting with persistent headache x 3 weeks with transient neurological symptoms. Workup thus far with elevated inflammatory markers ESR=26, CRP=1.19. CTA findings with concern for possible thromboembolic disease involving two left proximal M2 segments. ?thromosis vs stenosis vs vasospasm. Findings were discussed with [facility] Neurology - though possibly secondary to reversible cerebral vasoconstriction syndrome (RCVS). No acute neurological deficits identified at this time. -Hypercoagulability panel has been sent by the ER to include coagulation panel, Lupus anticoagulant, Protein C and S activity, antithrombin III activity, Factor V leiden mutation and homocystein as well as Beta-2GPI IgG and IgM and Anti- cardiolipin and Prothrombin gene mutation -AIMEE added as well -Patient has been given ASA 324mg -Will admit to medical with telemetry -NIHSS and Neuro checks per protocol -Check MRI brain as well as MRA brain -Check MRV brain -Check 2D echo -Check HgbA1C and Lipid panel -Neurology consultation appreciated -If blood pressure control agent is needed would start Verapamil as this may assist with controlling vasospasm as well as blood pressure -Toradol as needed for pain -Zofran as needed for nausea History of Present Illness Chief Complaint: headache Primary Care Provider: Saw Mittal Gaby Serrano is a pleasant 32yo female with history of migraine presenting with severe persistent headache. Patient follows with Neurology for her history of migraine. She states that they are planning an LP to workup possible idiopathic intracranial hypertension. She states that she recently began developing an aura with her migraine. Patient states that 3 weeks ago she developed what initially felt to be one of her typical migraines - posterior headache. The pain was more persistent and became more diffuse posterior headache. She developed brief episodes of imbalance, dizziness, slurred speech, poor coordination and forgetfulness which were self limiting. Her headache pain then progressed to a frontal headache and pain under both of her eyes. She states that she felt that the skin under her eyes was tight and tingling. Today her pain was diffuse and severe. She reports feeling that her "brain was on fire". She was seen by Ophtho today and had a dilated exam performed. She said that there was "some narrowing" and that they were going to "watch her eye pressure" (complete note not available to me at this time) Pain has been constantly present for the last 3 weeks - waxing and waning in severity. She has been taking Excedril, Tylenol and her migraine medication with no improvement. She tried to ice her posterior head which she thinks made the pain worse. She has some intermittent nausea as well. Otherwise denies fever, chills, chest pain, cough, abdominal pain, vomiting, diarrhea, falls or trauma. Denies focal neurologic deficits or visual loss. Patient hypertensive in the ER CTA brain with high grade stenosis of two left proximal M2 segments concerning for acute thromboembolic disease. Findings discussed with [facility] and ER staff ER Course: NSS x 1L Toradol 10mg IV Benadryl 25mg IV Phenergan 12.5mg ASA 324mg Allergies Allergy/AdvReac Type Severity Reaction Status Date / Time hydromorphone [From Dilaudid] AdvReac Unknown Headache Verified 07/29/20 16:49 Home Medications Medication Instructions Recorded Confirmed Type oapmbsky-isi-Bg-FA 1 mg 1 tab PO DAILY 07/29/20 07/29/20 History tablet rizatriptan 10 mg tablet 10 mg PO UD PRN Migraine Headache 07/29/20 07/29/20 History Past Med/Surg History Medical History Asthma History of gestational hypertension History of hypothyroidism Migraine Morbid obesity Surgical History History of perineal laceration S/P REPAIR Hx of abdominal surgery SLEEVE GASTRECTOMY= NO FURTHER DETAILS Hx of tonsillectomy Family History Other Heart disease Myocardial infarction Social History Smoking Status: Never smoker Hx Alcohol Use: No Hx Substance Use: No Preferred Language: Kyrgyz Communication Ability: Effective Beliefs That Will Affect Care: None Current Living Situation: Family Feels Safe at Home: Yes Assistive Devices: None Review of Systems Review of Systems: All systems reviewed & are unremarkable except as noted in HPI & below Physical Exam Physical Exam: General: patient resting comfortably, NAD, non-toxic in appearance, AA&O x 4 Skin: warm, dry, intact, no rashes or lesions HEENT: NC/AT, PERRL, EOMI, anicteric sclera, conjunctiva without injection, external ear normal to inspection and nontender, nares patent, moist mucus membranes, dentition intact, no oropharyngeal lesions, neck supple, trachea midline, no LAD, no thyromegaly, no JVD Heart: +S1/S2, regular, no m/r/g Lungs: equal air entry bilaterally, no rales/rhonchi/wheezes Abd: +BS, soft, NT/ND, no masses/organomegaly/ascites Ext: warm, 2+ pulses in UE/LE bilaterally, no clubbing/cyanosis or edema Neuro: nonfocal, patient AA&O x 4, speech intact, no facial droop, CN II-XII intact, sensation to light touch intact, moving all extremities on command with equal strength 5/5, no drift, no dysmetria Results & Data Results & Data Vital Signs (Past 12 Hours) Vital Signs Temp Pulse Pulse Resp BP BP Pulse Ox 11/06/22 03:00 90 14 165/117 H 99 11/06/22 02:57 73 11/06/22 01:00 66 15 138/105 H 99 11/06/22 00:00 75 15 98 11/05/22 22:52 72 11/05/22 22:52 73 16 158/107 H 100 11/05/22 22:51 99 11/05/22 21:59 36.9 C 72 16 154/114 H 98 O2 Del Method 11/06/22 03:00 11/06/22 02:57 11/06/22 01:00 Room Air 11/06/22 00:00 Room Air 11/05/22 22:52 11/05/22 22:52 Room Air 11/05/22 22:51 Room Air 11/05/22 21:59 Room Air Laboratory Results Laboratory Results WBC 7.37 K/ul (4.8-10.8) 11/05/22 22:42 RBC 4.51 M/uL (4.20-5.40) 11/05/22 22:42 Hgb 12.0 g/dl (12.0-16.0) 11/05/22 22:42 Hct 37.9 % (37.0-47.0) 11/05/22 22:42 MCV 84.0 fL (80.0-100.0) 11/05/22 22:42 MCH 26.6 pg (25.0-34.0) 11/05/22 22:42 MCHC 31.7 g/dL (32.0-36.0) L 11/05/22 22: RDW Std Deviation 46.7 fL (36.4-46.3) H 11/05/22 22:42 RDW Coeff of Trina 15.2 % (11.5-14.5) H 11/05/22 22:42 Plt Count 324 K/uL (130-400) 11/05/22 22:42 MPV 10.2 fL (9.4-12.4) 11/05/22 22:42 Immature Gran % (Auto) 0.1 % 11/05/22 22:42 Neut % (Auto) 55.1 % 11/05/22 22:42 Lymph % (Auto) 34.5 % 11/05/22 22:42 Victoria % (Auto) 7.2 % 11/05/22 22:42 Eos % (Auto) 2.2 % 11/05/22 22:42 Baso % (Auto) 0.9 % 11/05/22 22: Neut # (Auto) 4.06 K/uL (1.40-6.50) 11/05/22 22:42 Lymph # (Auto) 2.54 K/uL (1.20-3.40) 11/05/22 22:42 Victoria # (Auto) 0.53 K/uL (0.11-0.59) 11/05/22 22:42 Eos # (Auto) 0.16 K/uL (0.00-0.50) 11/05/22 22:42 Baso # (Auto) 0.07 K/uL (0.00-0.20) 11/05/22 22:42 Immature Gran # (Auto) 0.01 K/uL (0.01-0.20) 11/05/22 22: ESR 26 mm/hr (0-20) H 11/05/22 22:42 PT 10.5 Seconds (9.0-12.0) 11/05/22 22:24 INR 1.0 (0.9-1.1) 11/05/22 22:24 APTT 26.3 Seconds (21.0-31.0) 11/05/22 22:24 PTT Ratio 0.9 11/05/22 22:24 Sodium 140 mmol/L (136-145) 11/05/22 22:42 Potassium 3.6 mmol/L (3.5-5.1) 11/05/22 22:42 Chloride 107 mmol/L (98-107) 11/05/22 22:42 Carbon Dioxide 26 mmol/L (21-32) 11/05/22 22:42 Anion Gap 7 (3-11) 11/05/22 22:42 BUN 20 mg/dl (6-23) 11/05/22 22:42 Creatinine 0.86 mg/dl (0.6-1.2) 11/05/22 22:42 Est Cr Clr Drug Dosing 138.1 ml/min 11/05/22 22:42 Est GFR ( Amer) 102.9 ml/min 11/05/22 22:42 Est GFR (Non-Af Amer) 88.8 ml/min 11/05/22 22:42 BUN/Creatinine Ratio 23.3 (10-20) H 11/05/22 22:42 Glucose 94 mg/dl (70-99(Fasting)) 11/05/22 22:42 Calcium 9.2 mg/dl (8.6-10.3) 11/05/22 22:42 Total Bilirubin 0.4 mg/dl (0.2-1.0) 11/05/22 22:42 AST 12 U/L (13-39) L 11/05/22 22:42 ALT 13 U/L (7-52) 11/05/22 22:42 Alkaline Phosphatase 79 U/L (34-104) 11/05/22 22:42 Troponin I High Sens 3.8 pg/ml (0-14) 11/05/22 22:42 C-Reactive Protein 1.19 mg/dl (0-0.5) H 11/05/22 22:42 Total Protein 7.8 gm/dl (6.0-8.3) 11/05/22 22:42 Albumin 4.4 gm/dl (3.4-5.0) 11/05/22 22:42 Globulin 3.4 gm/dl (2.5-4.0) 11/05/22 22:42 Albumin/Globulin Ratio 1.3 (0.9-2) 11/05/22 22:42 Lipase 52 U/L (11-82) 11/05/22 22:42 HCG, Qual Negative (Negative) 11/05/22 22:[address] 11/05/22 22:28 Exam(s): CT HEAD Without Contrast EXAM: CT Head Without Intravenous Contrast CLINICAL HISTORY: Reason for exam: RIVAS. TECHNIQUE: Axial computed tomography images of the head/brain without intravenous contrast. CTDI is 14 mGy and DLP is 524.68 mGy-cm. Automated exposure control was utilized for the study. A dose lowering technique was utilized adhering to the principles of ALARA. COMPARISON: Comparison made to prior brain MRI from September 20, 2020. FINDINGS: Brain: Unremarkable. No hemorrhage. No significant white matter disease. No edema. Ventricles: Unremarkable. No ventriculomegaly. Bones/joints: Unremarkable. No acute fracture. Soft tissues: Unremarkable. Sinuses: Unremarkable as visualized. No acute sinusitis. Mastoid air cells: Unremarkable as visualized. No mastoid effusion. IMPRESSION: No evidence of acute intracranial pathology. Electronically signed by: Linda Logan MD 11/06/22 01:51 AM Head CTA 11/05/22 22:28 CR Exam(s): CTA HEAD With Contrast IV Amt: 119 ml opti 350 ADDENDUM - Added by Linda Logan MD on 11/06/2022 1:30 AM (-07:00) EXAM: CT Angiography Head With Intravenous Contrast CLINICAL HISTORY: Reason for exam: RIVAS. TECHNIQUE: Axial computed tomographic angiography images of the head with intravenous contrast. CTDI is 37.12 mGy and DLP is 624.41 mGy-cm. Automated exposure control was utilized for the study. A dose lowering technique was utilized adhering to the principles of ALARA. MIP reconstructed images were created and reviewed. CONTRAST: Patient received 119 ml opti 350 of IV contrast COMPARISON: No relevant prior studies available. FINDINGS: Right internal carotid artery: No acute findings. Intracranial segment is patent with no significant stenosis. No aneurysm. Right anterior cerebral artery: Unremarkable. No occlusion or significant stenosis. No aneurysm. Right middle cerebral artery: Unremarkable. No occlusion or significant stenosis. No aneurysm. Right posterior cerebral artery: Unremarkable. No occlusion or significant stenosis. No aneurysm. Right vertebral artery: Unremarkable as visualized. Left internal carotid artery: No acute findings. Intracranial segment is patent with no significant stenosis. No aneurysm. Left anterior cerebral artery: Unremarkable. No occlusion or significant stenosis. No aneurysm. Left middle cerebral artery: Findings concerning for a high-grade stenosis of proximal left M2 segment with diminished enhancement of the distal vessel there is a second stenosis of the proximal left M2 segment with filling defect. No aneurysm. Left posterior cerebral artery: Unremarkable. No occlusion or significant stenosis. No aneurysm. Left vertebral artery: Unremarkable as visualized. Basilar artery: Unremarkable. No occlusion or significant stenosis. No aneurysm. IMPRESSION: There are high-grade stenosis of 2 left proximal M2 segments concerning for acute thromboembolic disease. Communications: Verify Receipt Electronically signed by: Linda Logan MD 11/06/22 01:30 AM Neck CTA 11/05/22 22:28 Exam(s): CTA NECK With Contrast IV Amt: 119 ml opti 350 EXAM: CT Angiography Neck With Intravenous Contrast CLINICAL HISTORY: Reason for exam: RIVAS. TECHNIQUE: Routine carotid CT angiography protocol was performed with intravenous contrast. NASCET criteria using the distal ICAs for comparison were used for evaluation of stenoses. CTDI is 34.25 mGy and DLP is 522.72 mGy-cm. Automated exposure control was utilized for the study. A dose lowering technique was utilized adhering to the principles of ALARA. MIP reconstructed images were created and reviewed. CONTRAST: Patient received 119 ml opti 350 of IV contrast COMPARISON: None. FINDINGS: VASCULATURE: Right common carotid artery: Unremarkable. No occlusion or significant stenosis. No dissection. Right internal carotid artery: Unremarkable. Extracranial segment is patent with no occlusion or significant stenosis. No dissection. Right external carotid artery: Unremarkable. No occlusion. Right vertebral artery: Unremarkable. No occlusion or significant stenosis. No dissection. Left common carotid artery: Unremarkable. No occlusion or significant stenosis. No dissection. Left internal carotid artery: Unremarkable. Extracranial segment is patent with no occlusion or significant stenosis. No dissection. Left external carotid artery: Unremarkable. No occlusion. Left vertebral artery: Unremarkable. No occlusion or significant stenosis. No dissection. NECK: Bones/joints: Unremarkable. Soft tissues: Left thyroid nodule. Cervical lymphadenopathy. Lung apices: Findings concerning for bronchitis with pneumonitis, which may be infectious or inflammatory etiologies. CAROTID STENOSIS REFERENCE USING NASCET CRITERIA: % ICA stenosis = (1 - narrowest ICA diameter/diameter of distal cervical ICA) x 100. Mild - <50% stenosis. Moderate - 50-69% stenosis. Severe - 70-94% stenosis. Near occlusion - 95-99% stenosis. Occluded - 100% stenosis. IMPRESSION: Negative CT angiogram of the neck. Electronically signed by: Linda Logan MD 11/06/22 01:48 AM PG Care Time/CCT Total # of Minutes Spent Total Time Spent with Patient: Total time spent is greater than 50% in coordination of care (as documented) at patient's floor/unit and/or counseling patient: Coding Level of Care Code 48311 INT INP/OBS CARE 3/75MIN Diagnoses Acute headache R51.9 Headache type: unspecified Intractability: not intractable (1) Acute headache Headache type: unspecified Intractability: not intractable Qualified Code(s): R51.9 - Headache, unspecified
[2022-11-06] MEDS ORDERED: ONDANSETRON INJ 2 MG/ML 2 ML VIAL IV PRN (04:26)
[2022-11-06] MEDS ORDERED: KETOROLAC TROMETHAMINE 15 MG/ML VIAL IV PRN (04:26)
[2022-11-06] MEDS ORDERED: ACETAMINOPHEN 325 MG TAB PO PRN (04:26)
[2022-11-06] MEDS ORDERED: GADOBUTROL 65ML VIAL IV ONE (06:30)
--- NOTE | 2022-11-06 06:53 | Hospitalist Progress Note ---
Date of Service November 06, 2022 Assessment & Plan Admission and Anticipated Discharge Date Admission Date: November 06, 2022 Results & Data Results & Data Vital Signs (Past 12 Hours) Vital Signs Temp Pulse Pulse Resp BP BP Pulse Ox 11/06/22 05:00 71 17 127/81 99 11/06/22 05:00 75 19 155/95 H 96 11/06/22 04:52 74 16 141/87 H 96 11/06/22 04:26 76 19 141/87 H 96 11/06/22 03:00 90 14 165/117 H 99 11/06/22 02:57 73 11/06/22 01:00 66 15 138/105 H 99 11/06/22 00:00 75 15 98 11/05/22 22:52 72 11/05/22 22:52 73 16 158/107 H 100 11/05/22 22:51 99 11/05/22 21:59 36.9 C 72 16 154/114 H 98 O2 Del Method 11/06/22 05:00 Room Air 11/06/22 05:00 Room Air 11/06/22 04:52 Room Air 11/06/22 04:26 11/06/22 03:00 11/06/22 02:57 11/06/22 01:00 Room Air 11/06/22 00:00 Room Air 11/05/22 22:52 11/05/22 22:52 Room Air 11/05/22 22:51 Room Air 11/05/22 21:59 Room Air
--- NOTE | 2022-11-06 07:44 | Magnetic Resonance Report ---
MR venography head wo con CLINICAL HISTORY: Persistent headache. COMPARISON STUDY: Head CT and CTA of the head November 06, 2022. MRI of the brain September 20, 2020. TECHNIQUE: Utilizing a 1.5 Kath magnet and [id number]-[id number] technique, unenhanced MRV of the head was obtained. FINDINGS: The superior sagittal sinus is patent. The straight sinus is patent. The bilateral transver se and sigmoid sinuses are patent. The proximal bilateral internal jugular veins are patent. There is no evidence for dural sinus thrombosis on this exam. IMPRESSION: No evidence for dural sinus thrombosis. ACT 112: Negative or not required by law. Electronically signed by: Lee Langston M.D. 11/06/2022 7:43 AM
--- NOTE | 2022-11-06 08:16 | Magnetic Resonance Report ---
Brain MRI WITH AND WITHOUT CONTRAST HISTORY: Left-sided headache. ?CVA TECHNIQUE: Multiplanar multisequence MRI of the brain was performed both before and after the intrave nous administration of contrast. COMPARISON STUDY: Head CT 11/06/2022. Brain MRI 09/20/2020. FINDINGS: There are no areas of restricted diffusion to suggest acute infarction. The midline structu res are intact. The paranasal sinuses are clear. The mastoid air cells are clear. The ventricles and sulci are within normal limits for age. There is no mass, hematoma, midline shift. The major vascular flow-voids at the skull base are well maintained. Postcontrast sequences show no areas of abnormal e nhancement. IMPRESSION: No acute intracranial abnormality. ACT 112: Negative or not required by law. Electronically signed by: Chau Easton M.D. 11/06/2022 8:14 AM
--- NOTE | 2022-11-06 08:24 | Magnetic Resonance Report ---
Brain MRA HISTORY: Abnormal head CTA. Follow-up. Left-sided headache. ?CVA, Vasculitis, RCVS? TECHNIQUE: 3-D [id number]-[id number] MRA of the brain was performed without contrast. COMPARISON STUDY: Head CTA 11/06/2022. FINDINGS: Visualized intracranial internal carotid arteries, distal vertebral arteries, and basilar a rtery are widely patent. Questionable areas of irregularity/stenosis within the M2 branch of the bila teral MCAs and distal right TECHNICAL APPLICATIONS SPECIALIST may represent artifact. A vasculitis could also have a similar appear ance. No areas of arterial occlusion or aneurysm identified. IMPRESSION: Questionable areas of irregularity/stenosis within the M2 branches of the bilateral MCAs and distal r ight TECHNICAL APPLICATIONS SPECIALIST may represent artifact. A vasculitis could also have a similar appearance. No areas of arter ial occlusion or aneurysm identified. ACT 112: Negative or not required by law. Electronically signed by: Chau Easton M.D. 11/06/2022 8:22 AM
--- NOTE | 2022-11-06 09:14 | Neurology Consultation ---
Date of Consultation November 06, 2022 Assessment & Plan (1) Reversible cerebrovascular vasoconstriction syndrome: Patient presents with thunderclap headache different than her typical chronic migraine with vessel studies in clinical context consistent with mild RCVS. Bolus timing and image quality were poor in both studies and certainly possible this was artifactual. However, her history and medication use fits with RCVS which is worth treating temporarily until repeat imaging is obtained. Would also address chronic migraine and close follow-up with her [facility] neurologist. We discussed the following plan: -- For RCVS: -- Start Magnesium oxide 400mg BID as tolerated, can be daily if issues with loose stool -- Continue aspirin 81mg daily -- Stop lexapro, avoid OTC allergy/cold medicine -- Can consider SNRI if needed for depression, would prefer to wait for imaging resolution if possible -- Repeat head CTA in 3 months -- For current headache -- Medrol dose lory -- Increase topamax to 75mg qhs -- Limit OTC pain meds for headache -- Avoid triptans for the next 3 months Patient can otherwise follow-up with [facility] neurology, no further workup recommended, can be discharged from our perspective. Telehealth Consultation Telehealth Information Telehealth Information: I performed this visit using a real-time telehealth connection between my location and the patients location ([facility]). After connecting through interactive tele-video, patient was identified by name and date of and/or wristband check.Patient (or authorized healthcare sales representative graphic art) was informed that this was a telemedicine visit and it was being conducted confidentially over secure lines. My office door was closed and no one else was present in the room with me.Patient (or authorized healthcare sales representative graphic art) provided consent to proceed with the visit, expressed an understanding of privacy and security of the telemedicine visit, and gave permission to have a hospital sales representative graphic art in the room in order to assist with the visit and to conduct portions of the visit, as needed. I informed the patient (or authorized healthcare sales representative graphic art) that I reviewed their record and presented the opportunity for them to ask any questions regarding the visit today. The patient agreed to participate. History of Present Illness Reason for Consultation: Headache Requesting Physician: Dr. Lovelace Attending Physician: Ngozi Lovelace MD History of Present Illness Gaby Serrano is a 32 yo F presenting with 3 weeks of severe intractable headache different than her chronic migraine. She reports that the headache is posterior and radiates to the front. This started acutely, like a thunderclap when it first occurred. She notes that over the past 2 weeks her neurologist at [place] restarted her Topamax. She is also taking lexapro for depression but no OTC supplements, allergy/cold medications or energy drinks. She has never had a headache like this otherwise in the past. Denies any focal weakness, numbness today. Saw opthalmology recently with concern for possible optic disc edema but no clear papilledema. Allergies Allergy/AdvReac Type Severity Reaction Status Date / Time hydromorphone [From Dilaudid] AdvReac Unknown Headache Verified 07/29/20 16:49 Home Medications Medication Instructions Recorded Confirmed Type szqrongm-sex-Mk-FA 1 mg 1 tab PO DAILY 07/29/20 07/29/20 History tablet rizatriptan 10 mg tablet 10 mg PO UD PRN Migraine Headache 07/29/20 07/29/20 History Patient History Medical History Asthma History of gestational hypertension History of hypothyroidism Migraine Morbid obesity Surgical History History of perineal laceration S/P REPAIR Hx of abdominal surgery SLEEVE GASTRECTOMY= NO FURTHER DETAILS Hx of tonsillectomy Family History Other Heart disease Myocardial infarction Social History Smoking Status: Never smoker Hx Alcohol Use: No Hx Substance Use: No Preferred Language: Latvian Communication Ability: Effective Supervisor Lime Required: No Beliefs That Will Affect Care: None Current Living Situation: Significant Other Current Living Situation Comment: home Feels Safe at Home: Yes Assistive Devices: None Review of Systems + 7/10 headache Physical Exam Neurological Examination: Mental Status: Awake and alert. Fluent. Comprehension intact. Affect appropr iate. Cranial Nerves: II: pupils 3/3 to 2/2 III/IV/: Spontaneous versions intact without nystagmus VII: Facial expression symmetric VIII: Hearing intact to voice Motor: Strength was symmetric and antigravity throughout. There were no abnormal movements. Coordination: Movements were non-dysmetric Reflexes: Unable to assess over telemedicine Results & Data Vital Signs (Past 12 Hours) Vital Signs Temp Pulse Pulse Resp BP BP Pulse Ox 11/06/22 07:29 96 H 20 138/92 99 11/06/22 05:00 71 17 127/81 99 11/06/22 05:00 75 19 155/95 H 96 11/06/22 04:52 74 16 141/87 H 96 11/06/22 04:26 76 19 141/87 H 96 11/06/22 03:00 90 14 165/117 H 99 11/06/22 02:57 73 11/06/22 01:00 66 15 138/105 H 99 11/06/22 00:00 75 15 98 11/05/22 22:52 72 11/05/22 22:52 73 16 158/107 H 100 11/05/22 22:51 99 11/05/22 21:59 36.9 C 72 16 154/114 H 98 O2 Del Method 11/06/22 07:29 Room Air 11/06/22 05:00 Room Air 11/06/22 05:00 Room Air 11/06/22 04:52 Room Air 11/06/22 04:26 11/06/22 03:00 11/06/22 02:57 11/06/22 01:00 Room Air 11/06/22 00:00 Room Air 11/05/22 22:52 11/05/22 22:52 Room Air 11/05/22 22:51 Room Air 11/05/22 21:59 Room Air Laboratory Results Abnormal lab results 11/05/22 11/05/22 11/05/22 Range/Units 22:42 22:42 22:42 MCHC 31.7 L (32.0-36.0) g/dL RDW Std Deviation 46.7 H (36.4-46.3) fL RDW Coeff of Trina 15.2 H (11.5-14.5) % ESR 26 H (0-20) mm/hr BUN/Creatinine Ratio 23.3 H (10-20) AST 12 L (13-39) U/L C-Reactive Protein 1.19 H (0-0.5) mg/dl Diagnostic Findings MRI brain and MRV - unremarkable --CTA head and neck - possible vasospasm in the L MCA -- MRA - artifact vs vasospasm in the L MCA
--- NOTE | 2022-11-06 10:28 | Discharge Summary ---
Date of Service November 06, 2022 Admission HPI Per Admitting Provider Gaby Serrano is a pleasant 32yo female with history of migraine presenting with severe persistent headache. Patient follows with Neurology for her history of migraine. She states that they are planning an LP to workup possible idiopathic intracranial hypertension. She states that she recently began developing an aura with her migraine. Patient states that 3 weeks ago she developed what initially felt to be one of her typical migraines - posterior headache. The pain was more persistent and became more diffuse posterior headache. She developed brief episodes of imbalance, dizziness, slurred speech, poor coordination and forgetfulness which were self limiting. Her headache pain then progressed to a frontal headache and pain under both of her eyes. She states that she felt that the skin under her eyes was tight and tingling. Today her pain was diffuse and severe. She reports feeling that her "brain was on fire". She was seen by Ophtho today and had a dilated exam performed. She said that there was "some narrowing" and that they were going to "watch her eye pressure" (complete note not available to me at this time) Pain has been constantly present for the last 3 weeks - waxing and waning in severity. She has been taking Excedril, Tylenol and her migraine medication with no improvement. She tried to ice her posterior head which she thinks made the pain worse. She has some intermittent nausea as well. Otherwise denies fever, chills, chest pain, cough, abdominal pain, vomiting, diarrhea, falls or trauma. Denies focal neurologic deficits or visual loss. Patient hypertensive in the ER CTA brain with high grade stenosis of two left proximal M2 segments concerning for acute thromboembolic disease. Findings discussed with [facility] and ER staff ER Course: NSS x 1L Toradol 10mg IV Benadryl 25mg IV Phenergan 12.5mg ASA 324mg Admission Exam Per Admitting Provider General: patient resting comfortably, NAD, non-toxic in appearance, AA&O x 4 Skin: warm, dry, intact, no rashes or lesions HEENT: NC/AT, PERRL, EOMI, anicteric sclera, conjunctiva without injection, e xternal ear normal to inspection and nontender, nares patent, moist mucus membranes, dentition intact, no oropharyngeal lesions, neck supple, trachea midline, no LAD, no thyromegaly, no JVD Heart: +S1/S2, regular, no m/r/g Lungs: equal air entry bilaterally, no rales/rhonchi/wheezes Abd: +BS, soft, NT/ND, no masses/organomegaly/ascites Ext: warm, 2+ pulses in UE/LE bilaterally, no clubbing/cyanosis or edema Neuro: nonfocal, patient AA&O x 4, speech intact, no facial droop, CN II-XII intact, sensation to light touch intact, moving all extremities on command with equal strength 5/5, no drift, no dysmetria Principal Diagnosis Reversible cerebrovascular vasoconstriction syndrome: Discharge Exam Constitutional WD/WN, vitals as above Eyes PERRL, conjunctivae normal, anicteric sclerae ENMT external ear and nose normal, oropharynx normal Neck trachea midline, no thyromegaly Respiratory normal respiratory effort, lungs clear to auscultation Cardiovascular RRR, no murmur, no edema Gastrointestinal (Abdomen) normal bowel sounds, soft, nontender, no hepatosplenomegaly Musculoskeletal no cyanosis or clubbing, extremities motor strength 5/5 Neurologic PERRL, EOMI, accommodation nl, no face palsy, no dysarthria Cranial Nerves: PERRL, normal accommodation, EOM intact bilaterally, normal facial strength, normal hearing, able to rotate head bilaterally, able to elevate shoulders bilaterally and no nystagmus Discharge Data Allergies Allergy/AdvReac Type Severity Reaction Status Date / Time [id number] Antimigraine AdvReac Severe Chest pain Unverified 11/06/22 09:55 Agents and shortness of breath hydromorphone [From Dilaudid] AdvReac Unknown Headache Verified 07/29/20 16:49 Consultations 11/06/22 03:07 ED Decision to Admit Stat 11/06/22 04:26 Consult Neurology Routine Ordered Studies Labs 11/05/22 11/05/22 11/05/22 22:24 22:42 22:42 WBC 7.37 RBC 4.51 Hgb 12.0 Hct 37.9 MCV 84.0 MCH 26.6 MCHC 31.7 L RDW Std Deviation 46.7 H RDW Coeff of Trina 15.2 H Plt Count 324 MPV 10.2 Immature Gran % (Auto) 0.1 Neut % (Auto) 55.1 Lymph % (Auto) 34.5 [place] % (Auto) 7.2 Eos % (Auto) 2.2 Baso % (Auto) 0.9 Neut # (Auto) 4.06 Lymph # (Auto) 2.54 [place] # (Auto) 0.53 Eos # (Auto) 0.16 Baso # (Auto) 0.07 Immature Gran # (Auto) 0.01 ESR PT 10.5 INR 1.0 APTT 26.3 PTT Ratio 0.9 Sodium 140 Potassium 3.6 Chloride 107 Carbon Dioxide 26 Anion Gap 7 BUN 20 Creatinine 0.86 Est Cr Clr Drug Dosing 138.1 Est GFR ( Amer) 102.9 Est GFR (Non-Af Amer) 88.8 BUN/Creatinine Ratio 23.3 H Glucose 94 Estimat Average Glucose Hemoglobin A1c Calcium 9.2 Magnesium Total Bilirubin 0.4 AST 12 L ALT 13 Alkaline Phosphatase 79 Troponin I High Sens 3.8 C-Reactive Protein 1.19 H Total Protein 7.8 Albumin 4.4 Globulin 3.4 Albumin/Globulin Ratio 1.3 Triglycerides Cholesterol LDL Cholesterol, Calc VLDL Cholesterol, Calc HDL Cholesterol Cholesterol/HDL Ratio Lipase 52 HCG, Qual 11/05/22 11/05/22 11/06/22 22:42 22:42 10:31 WBC RBC Hgb Hct MCV MCH MCHC RDW Std Deviation RDW Coeff of Trina Plt Count MPV Immature Gran % (Auto) Neut % (Auto) Lymph % (Auto) [place] % (Auto) Eos % (Auto) Baso % (Auto) Neut # (Auto) Lymph # (Auto) [place] # (Auto) Eos # (Auto) Baso # (Auto) Immature Gran # (Auto) ESR 26 H PT INR APTT PTT Ratio Sodium 139 Potassium 3.5 Chloride 109 H Carbon Dioxide 26 Anion Gap 4 BUN 21 Creatinine 0.72 Est Cr Clr Drug Dosing 159.3 Est GFR ( Amer) 127.5 Est GFR (Non-Af Amer) 110.0 BUN/Creatinine Ratio 29.2 H Glucose 104 H Estimat Average Glucose Hemoglobin A1c Calcium 8.7 Magnesium 2.0 Total Bilirubin AST ALT Alkaline Phosphatase Troponin I High Sens C-Reactive Protein Total Protein Albumin Globulin Albumin/Globulin Ratio Triglycerides 195 H Cholesterol 150 LDL Cholesterol, Calc 76 VLDL Cholesterol, Calc 39 H HDL Cholesterol 35 Cholesterol/HDL Ratio 4.3 Lipase HCG, Qual Negative 11/06/22 11/06/22 10:31 10:31 WBC 4.83 RBC 4.28 Hgb 11.4 L Hct 35.7 L MCV 83.4 MCH 26.6 MCHC 31.9 L RDW Std Deviation 45.9 RDW Coeff of Trina 15.2 H Plt Count 302 MPV 10.1 Immature Gran % (Auto) 0.2 Neut % (Auto) 57.6 Lymph % (Auto) 31.9 [place] % (Auto) 6.6 Eos % (Auto) 3.1 Baso % (Auto) 0.6 Neut # (Auto) 2.78 Lymph # (Auto) 1.54 [place] # (Auto) 0.32 Eos # (Auto) 0.15 Baso # (Auto) 0.03 Immature Gran # (Auto) 0.01 ESR PT INR APTT PTT Ratio Sodium Potassium Chloride Carbon Dioxide Anion Gap BUN Creatinine Est Cr Clr Drug Dosing Est GFR ( Amer) Est GFR (Non-Af Amer) BUN/Creatinine Ratio Glucose Estimat Average Glucose 105 Hemoglobin A1c 5.3 Calcium Magnesium Total Bilirubin AST ALT Alkaline Phosphatase Troponin I High Sens C-Reactive Protein Total Protein Albumin Globulin Albumin/Globulin Ratio Triglycerides Cholesterol LDL Cholesterol, Calc VLDL Cholesterol, Calc HDL Cholesterol Cholesterol/HDL Ratio Lipase HCG, Qual Head CT 11/05/22 22:28 Exam(s): CT HEAD Without Contrast EXAM: CT Head Without Intravenous Contrast CLINICAL HISTORY: Reason for exam: RIVAS. TECHNIQUE: Axial computed tomography images of the head/brain without intravenous contrast. CTDI is 14 mGy and DLP is 524.68 mGy-cm. Automated exposure control was utilized for the study. A dose lowering technique was utilized adhering to the principles of ALARA. COMPARISON: Comparison made to prior brain MRI from September 20, 2020. FINDINGS: Brain: Unremarkable. No hemorrhage. No significant white matter disease. No edema. Ventricles: Unremarkable. No ventriculomegaly. Bones/joints: Unremarkable. No acute fracture. Soft tissues: Unremarkable. Sinuses: Unremarkable as visualized. No acute sinusitis. Mastoid air cells: Unremarkable as visualized. No mastoid effusion. IMPRESSION: No evidence of acute intracranial pathology. Electronically signed by: Linda Logan MD 11/06/22 01:51 AM Head CTA 11/05/22 22:28 CR Exam(s): CTA HEAD With Contrast IV Amt: 119 ml opti 350 ADDENDUM - Added by Linda Logan MD on 11/06/2022 1:30 AM (-07:00) EXAM: CT Angiography Head With Intravenous Contrast CLINICAL HISTORY: Reason for exam: RIVAS. TECHNIQUE: Axial computed tomographic angiography images of the head with intravenous contrast. CTDI is 37.12 mGy and DLP is 624.41 mGy-cm. Automated exposure control was utilized for the study. A dose lowering technique was utilized adhering to the principles of ALARA. MIP reconstructed images were created and reviewed. CONTRAST: Patient received 119 ml opti 350 of IV contrast COMPARISON: No relevant prior studies available. FINDINGS: Right internal carotid artery: No acute findings. Intracranial segment is patent with no significant stenosis. No aneurysm. Right anterior cerebral artery: Unremarkable. No occlusion or significant stenosis. No aneurysm. Right middle cerebral artery: Unremarkable. No occlusion or significant stenosis. No aneurysm. Right posterior cerebral artery: Unremarkable. No occlusion or significant stenosis. No aneurysm. Right vertebral artery: Unremarkable as visualized. Left internal carotid artery: No acute findings. Intracranial segment is patent with no significant stenosis. No aneurysm. Left anterior cerebral artery: Unremarkable. No occlusion or significant stenosis. No aneurysm. Left middle cerebral artery: Findings concerning for a high-grade stenosis of proximal left M2 segment with diminished enhancement of the distal vessel there is a second stenosis of the proximal left M2 segment with filling defect. No aneurysm. Left posterior cerebral artery: Unremarkable. No occlusion or significant stenosis. No aneurysm. Left vertebral artery: Unremarkable as visualized. Basilar artery: Unremarkable. No occlusion or significant stenosis. No aneurysm. IMPRESSION: There are high-grade stenosis of 2 left proximal M2 segments concerning for acute thromboembolic disease. Communications: Verify Receipt Electronically signed by: Linda Logan MD 11/06/22 01:30 AM Neck CTA 11/05/22 22:28 Exam(s): CTA NECK With Contrast IV Amt: 119 ml opti 350 EXAM: CT Angiography Neck With Intravenous Contrast CLINICAL HISTORY: Reason for exam: RIVAS. TECHNIQUE: Routine carotid CT angiography protocol was performed with intravenous contrast. NASCET criteria using the distal ICAs for comparison were used for evaluation of stenoses. CTDI is 34.25 mGy and DLP is 522.72 mGy-cm. Automated exposure control was utilized for the study. A dose lowering technique was utilized adhering to the principles of ALARA. MIP reconstructed images were created and reviewed. CONTRAST: Patient received 119 ml opti 350 of IV contrast COMPARISON: None. FINDINGS: VASCULATURE: Right common carotid artery: Unremarkable. No occlusion or significant stenosis. No dissection. Right internal carotid artery: Unremarkable. Extracranial segment is patent with no occlusion or significant stenosis. No dissection. Right external carotid artery: Unremarkable. No occlusion. Right vertebral artery: Unremarkable. No occlusion or significant stenosis. No dissection. Left common carotid artery: Unremarkable. No occlusion or significant stenosis. No dissection. Left internal carotid artery: Unremarkable. Extracranial segment is patent with no occlusion or significant stenosis. No dissection. Left external carotid artery: Unremarkable. No occlusion. Left vertebral artery: Unremarkable. No occlusion or significant stenosis. No dissection. NECK: Bones/joints: Unremarkable. Soft tissues: Left thyroid nodule. Cervical lymphadenopathy. Lung apices: Findings concerning for bronchitis with pneumonitis, which may be infectious or inflammatory etiologies. CAROTID STENOSIS REFERENCE USING NASCET CRITERIA: % ICA stenosis = (1 - narrowest ICA diameter/diameter of distal cervical ICA) x 100. Mild - <50% stenosis. Moderate - 50-69% stenosis. Severe - 70-94% stenosis. Near occlusion - 95-99% stenosis. Occluded - 100% stenosis. IMPRESSION: Negative CT angiogram of the neck. Electronically signed by: Linda Logan MD 11/06/22 01:48 AM Brain MRI 11/06/22 04:26 Brain MRI WITH AND WITHOUT CONTRAST HISTORY: Left-sided headache. ?CVA TECHNIQUE: Multiplanar multisequence MRI of the brain was performed both before and after the intravenous administration of contrast. COMPARISON STUDY: Head CT 11/06/2022. Brain MRI 09/20/2020. FINDINGS: There are no areas of restricted diffusion to suggest acute infarction. The midline structures are intact. The paranasal sinuses are clear. The mastoid air cells are clear. The ventricles and sulci are within normal limits for age. There is no mass, hematoma, midline shift. The major vascular flow-voids at the skull base are well maintained. Postcontrast sequences show no areas of abnormal enhancement. IMPRESSION: No acute intracranial abnormality. ACT 112: Negative or not required by law. Electronically signed by: Chau Easton M.D. 11/06/2022 8:14 AM Head MRA 11/06/22 04:26 Brain MRA HISTORY: Abnormal head CTA. Follow-up. Left-sided headache. ?CVA, Vasculitis, RCVS? TECHNIQUE: 3-D [id number] MRA of the brain was performed without contrast. COMPARISON STUDY: Head CTA 11/06/2022. FINDINGS: Visualized intracranial internal carotid arteries, distal vertebral arteries, and basilar artery are widely patent. Questionable areas of irregularity/stenosis within the M2 branch of the bilateral MCAs and distal right CODING DIRECTOR may represent artifact. A vasculitis could also have a similar appearance. No areas of arterial occlusion or aneurysm identified. IMPRESSION: Questionable areas of irregularity/stenosis within the M2 branches of the bilateral MCAs and distal right CODING DIRECTOR may represent artifact. A vasculitis could also have a similar appearance. No areas of arterial occlusion or aneurysm identified. ACT 112: Negative or not required by law. Electronically signed by: Chau Easton M.D. 11/06/2022 8:22 AM Head/Brain Mag Res Venography 11/06/22 04:26 MR venography head wo con CLINICAL HISTORY: Persistent headache. COMPARISON STUDY: Head CT and CTA of the head November 06, 2022. MRI of the brain September 20, 2020. TECHNIQUE: Utilizing a 1.5 Kath magnet and [id number] technique, unenhanced MRV of the head was obtained. FINDINGS: The superior sagittal sinus is patent. The straight sinus is patent. The bilateral transverse and sigmoid sinuses are patent. The proximal bilateral internal jugular veins are patent. There is no evidence for dural sinus thrombosis on this exam. IMPRESSION: No evidence for dural sinus thrombosis. ACT 112: Negative or not required by law. Electronically signed by: Lee Langston M.D. 11/06/2022 7:43 AM 11/05/22 22:28 CT angio head w con Stat CT angio neck with con Stat CT head/brain wo con Stat 11/06/22 04:26 MR angio head wo con Urgent MR brain wo/w con Routine MR venography head wo con Routine Hospital Course (1) Reversible cerebrovascular vasoconstriction syndrome: 32yo female with history of migraine presenting with persistent headache x 3 weeks with transient neurological symptoms. She described an occipital headache that goes into the front of her head.She developed brief episodes of imbalance, dizziness, slurred speech, poor coordination and forgetfulness which were self limiting. Her headache pain then progressed to a frontal headache and pain under both of her eyes. She states that she felt that the skin under her eyes was tight and tingling. - Images were taken during her stay. CTA brain with high grade stenosis of two left proximal M2 segments concerning for acute thromboembolic disease. Aspirin were given. - Neurology was consulted. MRIA showed: No acute intracranial abnormality.Brain MRI Venography: No evidence for dural sinus thrombosis. Head MRI Angiography: Questionable areas of irregularity/stenosis within the M2 branches of the bilateral MCAs and distal right CODING DIRECTOR may represent artifact. A vasculitis could also have a similar appearance. No areas of arterial occlusion or aneurysm identified. Neurology recommended the following: -Presentation likely from Reversible cerebral vasoconstriction syndrome. Recommended f/u with her [facility] -- Start Magnesium oxide 400mg BID as tolerated, can be daily if issues with loose stool -- Aspirin 81mg daily -- Stop lexapro, avoid OTC allergy/cold medicine -- Can consider SNRI if needed for depression, would prefer to wait for imaging resolution if possible -- Repeat head CTA in 3 months For her migraines, Neurology recommended -- Medrol dose brendan, for current headaches -- Increase topamax to 75mg qhs -- Limit OTC pain meds for headache -- Avoid triptans for the next 3 months Tapering of Lexapro was explained to the patient. She is currently on Lexapro 20 mg so will start Lexapro 10 mg daily for 1 week then 5 mg for 1 week then stop Patient discharge with instruction on follow up with her PCP and with Neurology Total Time Total Time Spent Total Time Spent (In Minutes): See attending attestation Discharge Plan Discharge Items Patient Disposition: Home - Self-Care Reason For Visit: HEADACHE, ?CVA Discharge Diagnosis: Reversible cerebrovascular vasoconstriction syndrome Activity: Resume your previous activity Lifting: None Bathing: No limitations Sexual Activity: When tolerated Exercise/Sports: As tolerated Driving/Machine Use: No limitations Weightbearing: Full weightbearing Non-emergency contact: Primary Care Provider Call non-emergency contact if: you have any medication questions and your sym ptoms worsen Follow-up/Referrals: Saw Mittal [Primary Care Provider] - Diet: Regular Addtl Attending Provider Instructions: You were here due to developing worsening headaches/ migraine that started 3 weeks ago. We consult neurology and run a set of images to rule out other causes of your headaches. The results came back for a degree of stenosis in one of your artery in your brain. As Dr. Anaya explained to you this is called cerebrovascular vasoconstriction syndrome. This is reversal and is occasioned by your current Lexapro use. Neurology recommendations are: - Start Magnesium oxide 400mg twice a day as tolerated, can be daily if issues with loose stool -- Continue aspirin 81mg daily -- Stop lexapro, avoid OTC allergy/cold medicine. -- Can consider SNRI if needed for depression, would prefer to wait for imaging resolution if possible -- Repeat head CTA in 3 months -- Follow up with Neurology outpatient --Increase Topamax to 75mg --Avoid Triptans for the next 3 months Tapering Lexapro -Lexapro 10 mg daily for 1 week then 5 mg for 1 week then stop -This is to help you minimized/avoid the withdrawal-type symptoms, including anxiety, nausea, headache, dizziness and drowsiness New medications: - Medrol dose brendan -Aspirin 81 mg -Magnesium oxide 40 mg twice a day -Increase Topomax to 75 mg daily Follow up with your PCP within a week Follow up with your Neurology Pending Studies at Discharge: No Stand-Alone Forms: My [facility] TakeCharge, Smoking Cessation Medications and DC Order Prescriptions: New magnesium oxide 400 mg magnesium tablet 400 mg PO BID Qty: 60 1RF aspirin 81 mg capsule 81 mg PO DAILY Qty: 30 1RF methylprednisolone [Medrol (Brendan)] 4 mg tablets,dose pack 4 mg PO Q OTHER DAY Qty: 21 0RF Continued famotidine 20 mg tablet 20 mg PO DAILY escitalopram oxalate 20 mg tablet 20 mg PO DAILY Changed topiramate 25 mg tablet 75 mg PO DAILY Qty: 90 1RF Rx Instructions: Patient stated- 25mg by mouth daily for 7 days then 50mg by mouth thereafter (she is now on 50mg by mouth daily 11/06/2022) Discharge Orders: Discharge Order (Routine); Ordered 11/06/22 Ordered By: Hamilton Nicholson Admission Data Admit Date/Time: 11/06/22 03:25 Attending Provider: Ngozi Lovelace Admit Provider: Sharda Schmitt Primary Care Provider: Saw Mittal Other Providers: Sharda Schmitt Anthony Other Interventions: Discharge Summary Assessment (RN) Last Done: 11/06/22 12:17 Supervising Physician Co-Signing Physician Notes Resident Physician Supervision Note: I independently interviewed and examined the patient and verified the castrejon history and physical, reviewed labs and image studies and agree with resident findings and care plan. Resident Activity Tracking Resident Involvement: Resident Care Provided Care Provided: Adult Hospital Medicine
[2022-11-06 10:56] LABS: Basophils # (auto) 0.03 K/uL (0.00-0.20); Basophils % (auto) 0.6 %; Eosinophils # (auto) 0.15 K/uL (0.00-0.50); Eosinophils % (auto) 3.1 %; Hematocrit (blood only) 35.7 % (37.0-47.0); Hemoglobin 11.4 g/dl (12.0-16.0); Immature Granulocytes # (auto) 0.01 K/uL (0.01-0.20); Immature Granulocytes % (auto) 0.2 %; Lymphocytes # (auto) 1.54 K/uL (1.20-3.40); Lymphocytes % (auto) 31.9 %; Mean Corpuscular Hemoglobin 26.6 pg (25.0-34.0); Mean Corpuscular Hgb Conc 31.9 g/dL (32.0-36.0); Mean Corpuscular Volume 83.4 fL (80.0-100.0); Mean Platelet Volume 10.1 fL (9.4-12.4); Monocytes # (auto) 0.32 K/uL (0.11-0.59); Monocytes % (auto) 6.6 %; Neutrophils # (auto) 2.78 K/uL (1.40-6.50); Neutrophils % (auto) 57.6 %; Platelet Count 302 K/uL (130-400); RDW Coefficient of Variation 15.2 % (11.5-14.5); RDW Standard Deviation 45.9 fL (36.4-46.3); Red Blood Count 4.28 M/uL (4.20-5.40); White Blood Count 4.83 K/ul (4.8-10.8)
[2022-11-06 11:16] LABS: BUN Creatinine Ratio 29.2 (10-20); Calcium 8.7 mg/dl (8.6-10.3); Chol HDL Ratio 4.3 (0-5); Creatinine Clr Calc Pharmacy 159.3 ml/min; Est GFR (African American) 127.5 ml/min; Potassium 3.5 mmol/L (3.5-5.1)
[2022-11-06 12:59] LABS: Estimated Average Glucose 105 mg/dl; Hemoglobin A1C 5.3 % (4.5-5.6)
--- NOTE | 2022-11-06 15:27 | XCELERA ---
[id number] [id number]
--- NOTE | 2022-11-06 16:59 | Electrocardiogram Report ---
Test Reason : Blood Pressure : / mmHG Vent. Rate : 073 BPM Atrial Rate : 073 BPM P-R Int : 138 ms QRS Dur : 086 ms QT Int : 430 ms P-R-T Axes : 050 003 009 degrees QTc Int : 473 ms Sinus rhythm with marked sinus arrhythmia Normal ECG When compared with ECG of 31-JAN-2022 06:53, Vent. rate has decreased BY 52 BPM Nonspecific T wave abnormality no longer evident in Lateral leads Confirmed by Tom Mckoy ([id number]) on 11/06/2022 4:58:45 PM Referred By: REFERRED SELF Confirmed By:Tom Mckoy
[2022-11-07 16:19] LABS: Anti Nuclear Antibody Screen NEGATIVE (NEGATIVE)
[2022-11-11 19:07] LABS: Factor 5 Mutation NEGATIVE
== END 2022-11-06 12:15 | disposition home or self-care (01) | DRG 69 ==
LOC: ED 21:49 → EDINP 11-06 03:25 → SUATTDRO 11-06 03:25 → EDINP 11-06 13:47